=== PATIENT | female | born 1965 ===

== ENCOUNTER 2017-05-14 11:27 | Emergency (ER) | payer SELFPAY ==
[2017-05-14 11:27] VITALS: BMI 24.4
[2017-05-14 11:59] VITALS: BP 130/71; PULSE 91; RESP 20; TEMP 97.2; O2SAT 99
[2017-05-14] MEDS: Sodium Chloride 0.9% 1,000 ML IV STA (13:19)
[2017-05-14 13:32] LABS: BASO # 0.1 K/uL (0.0-0.2); BASO % 0.6 % (0.0-2.0); HEMATOCRIT 40.2 % (34.0-47.0); LYMPH % 7.5 % (20.0-40.0); MEAN CELL VOLUME 94.8 fl (81.0-99.0); MEAN CORPUSCULAR HGB CONC 33.8 g/dL (33.0-37.0); MEAN PLATELET VOLUME 7.5 fl (7.2-11.7); MONO # 0.4 K/uL (0.0-0.8); NEUT # 11.8 K/uL (1.8-7.0); NEUT % 88.9 % (50.0-75.0); PLATELET COUNT 293 K/uL (130-400); RED CELL DISTRIBUTION WIDTH 12.6 % (11.5-14.5)
[2017-05-14 13:35] LABS: WHITE BLOOD COUNT 13.3 K/uL (4.8-10.8)
--- NOTE | 2017-05-14 13:45 | ED PDOC ---
Hyperglycemia/Hypoglycemia Time Seen by Provider: 05/14/17 12:56 Chief Complaint (Nursing): High Blood Sugar : The patient does not have any of the infectious symptoms listed except for those marked. Additional Complaint(s): 37yo F in ER for eval of elevated BS-sent by clinic BS was 380. pt admits she has increased dry mouth . Pt without nausea vomiting abd pain or headache, urinary freq or urgency or hematuira. taking metformin BID took the AM dose. not taking insulin. Past Medical History Vital Signs: Last Vital Signs Temp 97.2 F L 05/14/17 11:56 Pulse 91 H 05/14/17 11:56 Resp 20 05/14/17 11:56 BP 130/71 05/14/17 11:56 Pulse Ox 99 05/14/17 11:56 - Medical History PMH: Diabetes Denies: Chronic Kidney Disease - Family History Family History: States: No Known Family Hx - Home Medications Home Medications: Ambulatory Orders Medication Instructions Recorded GlipiZIDE [Glucotrol] 10 mg PO BIDAC #60 tab 05/01/17 MetFORMIN [glucoPHAGE] 500 mg PO BIDWM #60 tab 05/01/17 - Allergies Allergies/Adverse Reactions: Allergies Allergy/AdvReac Type Severity Reaction Status Date / Time No Known Allergies Allergy Verified 04/29/17 11:34 - Laboratory Results Result Diagrams: 05/14/17 13:19 05/14/17 13:28 - ECG O2 Sat by Pulse Oximetry: 99 Medical Decision Making Medical Decision Making: BS improved in ED pt well appearing and feels well. d/c home with f.u with clinic Disposition - Clinical Impression Clinical Impression: Hyperglycemia - Patient ED Disposition Is Patient to be Admitted: No Counseled Patient/Family Regarding: Need For Followup - Disposition Disposition: Routine/Home Disposition Time: 15:55 Condition: STABLE Instructions: How to Check Your Blood Sugar (ED), Diabetes Mellitus Type 2 in Adults (ED) Print Language: BRAZILIAN
[2017-05-14 13:52] LABS: ALB/GLOB RATIO 0.9 (1.0-2.1); ALKALINE PHOSPHATASE 150 U/L (38-126); ALT/SGPT 19 U/L (9-52); AST/SGOT 19 U/L (14-36); BILIRUBIN,TOTAL 0.6 mg/dl (0.2-1.3); BLOOD UREA NITROGEN 11 mg/dl (7-17); CALCIUM 9.2 mg/dL (8.4-10.2); CARBON DIOXIDE 30 mmol/L (22-30); CHLORIDE 97 mmol/L (98-107); GFR AFRICAN-AMERICAN > 60; GLUCOSE,RANDOM 327 mg/dL (65-105); POTASSIUM 4.5 MMOL/L (3.6-5.0); SODIUM 137 mmol/l (132-148); TOTAL PROTEIN 7.6 G/DL (6.3-8.2)
[2017-05-14 14:37] LABS: NEUTROPHIL 92 % (42-75); TOTAL CELLS COUNTED 100
[2017-05-14 14:38] LABS: RBC URINE 8 /hpf (0-3); URINE BACTERIA RARE (<OCC); URINE BILIRUBIN NEGATIVE (NEGATIVE); URINE BLOOD MODERATE (NEGATIVE); URINE COLOR STRAW (YELLOW); URINE GLUCOSE (UA) >=500 mg/dL (Normal); URINE KETONE 20 mg/dL (NEGATIVE); URINE LEUKOCYTE ESTERASE LARGE Leu/uL (Negative); URINE PROTEIN NEGATIVE (NEGATIVE); URINE UROBILINOGEN 0.2-1.0 mg/dL (0.2-1.0); WBC URINE 28 /hpf (0-5)
== END 2017-05-14 16:26 | disposition home or self-care (01) ==
LOC: H.ER 11:27
DX: E11.65 Type 2 diabetes mellitus with hyperglycemia (principal); Z79.84 Long term (current) use of oral hypoglycemic drugs
CPT/HCPCS: 80053; 81003; 82948; 85025; 99283; J7040

== ENCOUNTER 2017-05-21 09:38 | Inpatient (IN) | payer MEDICAID, SELFPAY ==
[2017-05-21 09:53] VITALS: BMI 19.4
[2017-05-21] MEDS ORDERED: Sodium Chloride 0.9% 1,000 ML IV STA (10:42)
[2017-05-21 10:56] LABS: BASO # 0.1 K/uL (0.0-0.2); BASO % 0.3 % (0.0-2.0); HEMATOCRIT 38.5 % (34.0-47.0); LYMPH # 0.7 K/uL (1.0-4.3); LYMPH % 3.3 % (20.0-40.0); MEAN CELL VOLUME 95.1 fl (81.0-99.0); MEAN CORPUSCULAR HGB CONC 33.6 g/dL (33.0-37.0); MEAN PLATELET VOLUME 9.2 fl (7.2-11.7); MONO # 0.7 K/uL (0.0-0.8); MONO % 3.3 % (0.0-10.0); NEUT # 18.8 K/uL (1.8-7.0); NEUT % 93.1 % (50.0-75.0); NRBC % 0.1 % (0.0-0.0); PLATELET COUNT 360 K/uL (130-400); RED CELL DISTRIBUTION WIDTH 12.8 % (11.5-14.5); WHITE BLOOD COUNT 20.2 K/uL (4.8-10.8)
[2017-05-21 10:56] LABS: VENOUS BLOOD GAS BASE EXCESS 0.5 mmol/L (0.0-2.0); VENOUS BLOOD GAS PCO2 52 mmHg (40-60); VENOUS BLOOD PH 7.33 (7.32-7.43)
[2017-05-21 11:34] LABS: ALB/GLOB RATIO 0.9 (1.0-2.1); ALKALINE PHOSPHATASE 168 U/L (38-126); ALT/SGPT 25 U/L (9-52); AST/SGOT 12 U/L (14-36); BILIRUBIN,TOTAL 0.5 mg/dl (0.2-1.3); BLOOD UREA NITROGEN 19 mg/dl (7-17); CALCIUM 9.1 mg/dL (8.4-10.2); CARBON DIOXIDE 24 mmol/L (22-30); CHLORIDE 102 mmol/L (98-107); GFR AFRICAN-AMERICAN > 60; GLUCOSE,RANDOM 424 mg/dL (65-105); POTASSIUM 4.4 MMOL/L (3.6-5.0); SODIUM 140 mmol/l (132-148); TOTAL PROTEIN 6.9 G/DL (6.3-8.2)
--- NOTE | 2017-05-21 11:36 | RAD ---
HISTORY: infectious work up COMPARISON: Obstructive series performed 04/29/17 TECHNIQUE: Chest PA and lateral FINDINGS: Examination limited by habitus. LUNGS: No focal consolidation. Please note that chest x-ray has limited sensitivity for the detection of pulmonary masses. PLEURA: No significant pleural effusion identified. No definite pneumothorax . CARDIOVASCULAR: Heart size appears within normal limits. OSSEOUS STRUCTURES: Mild degenerative changes. VISUALIZED UPPER ABDOMEN: Unremarkable. OTHER FINDINGS: None. IMPRESSION: No focal consolidation, significant pleural effusion, or definite pneumothorax identified.
[2017-05-21 12:06] LABS: NEUTROPHIL 89 % (42-75); TOTAL CELLS COUNTED 100
[2017-05-21 12:07] LABS: GIANT PLATELETS PRESENT
[2017-05-21] MEDS ORDERED: Insulin Regular 100 units/ml IV STA (12:14)
--- NOTE | 2017-05-21 12:51 | ED PDOC ---
Hyperglycemia/Hypoglycemia Time Seen by Provider: 05/21/17 10:04 Chief Complaint (Nursing): High Blood Sugar Chief Complaint (Provider): High blood sugar History Per: Patient History/Exam Limitations: no limitations Onset/Duration Of Symptoms: Days (x1) Current Symptoms Are (Timing): Still Present Associated Infectious Symptoms: denies: Cough, Dysuria, Nausea, Vomiting, Diarrhea : The patient does not have any of the infectious symptoms listed except for those marked. Treatment Prior To Provider Evaluation: Accucheck Additional Complaint(s): Maria Isabel Mcfarland is a 52 year old female, with a past medical history of diabetes, who presents to the emergency department for an elevated blood sugar associated with fatigue onset just today. Patient generally feels dry and thirsty. She is also complaining of nausea when she eats onset for x1 month. Patient believes this has been happening on and off for months with the sugar usually on the high end. Patient visited the clinic today where she received an accucheck and had her sugar on the 400s. She is not taking any insulin. She is currently taking metformin and glipizide. She denies any fever, vomiting, cough , chest pain, headache, shortness of breath, urinary symptoms, diarrhea or abdominal pain. PMD: Philippe Pierre Past Medical History Reviewed: Historical Data, Nursing Documentation, Vital Signs Vital Signs: Last Vital Signs Temp 97 F L 05/21/17 09:50 Pulse 96 H 05/21/17 09:50 Resp BP 141/45 L 05/21/17 09:50 Pulse Ox 99 05/21/17 09:50 - Medical History PMH: Diabetes Denies: Chronic Kidney Disease - Family History Family History: States: Unknown Family Hx - Social History Current smoker - smoking cessation education provided: No Alcohol: None Drugs: Denies - Home Medications Home Medications: Ambulatory Orders Medication Instructions Recorded Atorvastatin [Lipitor] 20 mg PO DAILY #30 tab 05/27/17 Ciprofloxacin HCl [Cipro] 500 mg PO BID 10 Days tablet 05/27/17 GlipiZIDE [Glucotrol] 10 mg PO ACD #30 tab 05/27/17 GlipiZIDE [Glucotrol] 20 mg PO ACB #30 tab 05/27/17 Lisinopril [Zestril] 5 mg PO DAILY #30 tab 05/27/17 MetFORMIN [glucoPHAGE] 1,000 mg PO QAM #30 tab 05/27/17 Sulfamethoxazole/Trimethoprim 1 tab PO BID 10 Days tab 05/27/17 [Bactrim DS 800 mg-160 mg] metFORMIN [glucOPHAGE] 500 mg PO QPM #30 tab 05/27/17 - Allergies Allergies/Adverse Reactions: Allergies Allergy/AdvReac Type Severity Reaction Status Date / Time No Known Allergies Allergy Verified 05/21/17 10:04 Review of Systems ROS Statement: Except As Marked, All Systems Reviewed And Found Negative Constitutional: Positive for: Other (fatigue, dry and thirsty). Negative for: Fever Cardiovascular: Negative for: Chest Pain Respiratory: Negative for: Cough, Shortness of Breath Gastrointestinal: Negative for: Nausea, Vomiting, Abdominal Pain, Diarrhea Genitourinary Female: Negative for: Dysuria Neurological: Negative for: Headache Physical Exam - Reviewed Nursing Documentation Reviewed: Yes Vital Signs Reviewed: Yes - Physical Exam Appears: Positive for: Well (comfortable), Non-toxic, No Acute Distress Head Exam: Positive for: ATRAUMATIC, NORMAL INSPECTION, NORMOCEPHALIC Skin: Positive for: Normal Color, Warm, Dry Eye Exam: Positive for: EOMI, Normal appearance, PERRL ENT: Positive for: Normal ENT Inspection Neck: Positive for: Normal, Painless ROM, Supple Cardiovascular/Chest: Positive for: Regular Rate, Rhythm. Negative for: Murmur Respiratory: Positive for: Normal Breath Sounds. Negative for: Respiratory Distress Gastrointestinal/Abdominal: Positive for: Normal Exam, Bowel Sounds, Soft. Negative for: Tenderness, Guarding, Rebound Back: Positive for: Normal Inspection. Negative for: L CVA Tenderness, R CVA Tenderness Extremity: Positive for: Normal ROM. Negative for: Deformity, Swelling Neurologic/Psych: Positive for: Alert, Oriented. Negative for: Motor/Sensory Deficits - Laboratory Results Result Diagrams: 05/26/17 06:30 05/26/17 06:30 - ECG O2 Sat by Pulse Oximetry: 99 (RA) Pulse Ox Interpretation: Normal Medical Decision Making Medical Decision Making: Initial Impression: hyperglycemia diabetic. Rule out: DKA, infection Initial Plan: --VBG --Comp Metabolic Panel --Urine Dipstick --CBC w/ differential --Chest two views (PA/LAT) [RAD] --HumunLIN R --NS IV 1,000 ml @ 1,000 mls/hr --Influenza A B --Urinalysis --reevaluation 1134 Chest X-Ray FINDINGS: Examination limited by habitus. LUNGS: No focal consolidation. Please note that chest x-ray has limited sensitivity for the detection of pulmonary masses. PLEURA: No significant pleural effusion identified. No definite pneumothorax . CARDIOVASCULAR: Heart size appears within normal limits. OSSEOUS STRUCTURES: Mild degenerative changes. VISUALIZED UPPER ABDOMEN: Unremarkable. OTHER FINDINGS: None. IMPRESSION: No focal consolidation, significant pleural effusion, or definite pneumothorax identifie Patient qualified for inpatient admission for UTI associated with elevated WBC and underlying diabetes as risk factor as well as admission for diabetic hyperglycemia and uncontrolled diabetes. Scribe Attestation: Documented by Michael Villaseñor, acting as a scribe for Kiana Espinoza MD Provider Scribe Attestation: All medical record entries made by the Scribe were at my direction and personally dictated by me. I have reviewed the chart and agree that the record accurately reflects my personal performance of the history, physical exam, medical decision making, and the department course for this patient. I have also personally directed, reviewed, and agree with the discharge instructions and disposition. Disposition - Clinical Impression Clinical Impression: Urinary tract infectious disease, Hyperglycemia, Diabetic complication - Patient ED Disposition Is Patient to be Admitted: Yes Doctor Will See Patient In The: ED Counseled Patient/Family Regarding: Studies Performed, Diagnosis - Disposition Disposition Time: 15:45 Condition: FAIR - Pt Status Changed To: Hospital Disposition Of: Inpatient - Admit Certification Admit to Inpatient:: After my assessment, the patient will require hospitalization for at least two midnights. This is because of the severity of symptoms shown, intensity of services needed, and/or the medical risk in this patient being treated as an outpatient. - POA Present On Arrival: Poor Glycemic Control
[2017-05-21 13:08] LABS: RBC URINE 6 /hpf (0-3); URINE BACTERIA RARE (<OCC); URINE BILIRUBIN NEGATIVE (NEGATIVE); URINE BLOOD SMALL (NEGATIVE); URINE COLOR STRAW (YELLOW); URINE GLUCOSE (UA) >=500 mg/dL (Normal); URINE KETONE 20 mg/dL (NEGATIVE); URINE LEUKOCYTE ESTERASE MOD Leu/uL (Negative); URINE PROTEIN NEGATIVE (NEGATIVE); URINE UROBILINOGEN 0.2-1.0 mg/dL (0.2-1.0); WBC URINE 18 /hpf (0-5)
[2017-05-21] MEDS ORDERED: cefTRIAXone IV 1 gm in Dextros 50 ML IVPB STA (13:18)
[2017-05-21] MEDS ORDERED: cefTRIAXone IV 1 gm in Dextros 50 ML IVPB ONE (13:34)
[2017-05-21] MEDS ORDERED: Dextrose 50% SYRINGE Inj (50 ml) IV PRN (16:29)
[2017-05-21] MEDS ORDERED: Glucagon Recombinant 1 mg Inj IM PRN (16:29)
--- NOTE | 2017-05-21 16:58 | CP.PCM.HP ---
History of Present Illness - History of Present Illness History of Present Illness: PMD Dr French([facility]) History taken from patient and Full code. No advance directives. Patient designates her Toñito Ellis( [phone]) as her next of kin. 52 y/o F with PMHx of recently diagnosed DM. presented to the ED, after being transferred from [facility] because of persistent hyperglycemia with ketones in the urine. Patient was started PO hypoglycemics 1 month ago and has been compliant. Patient also c/o Wt loss of about 40 lbs since last year, polydipsy, dry mouth, anorexia, bloating and vaginal itching. Patient has not seen a doctor in years until recently(1 month ago) that she presented to ED c/o abd pain, nausea. She then followed at the clinic and she was started on Metformin 500 mg BID and Glipizide 10 mg daily which patient has been compliant with. She denies dysuria , CP, SOB, dizziness, blurry vision, diarrhea, polyuria. Patient c/o whitish, non foul smelling vaginal discharge, itchy associated with some redness. No difficulty or pain swallowing. ED course: CBC, CMP, EKG, CXR, VBG, UA, Influenza, UCx, BCx. Remarkable results: BS 424, UA suggest UTI, WBC 20(See reports) IV fluids Rocephin x1 Regular Insulin 5 units stat PMHx: Denies SxHx: Denies SHx: Denies x3. Lives with . FHx: Mother: HTN Siblings: DM LMP: 10 y/a Present on Admission - Present on Admission Any Indicators Present on Admission: Yes History of Uncontrolled Diabetes: Yes Review of Systems - Review of Systems All systems: reviewed and no additional remarkable complaints except (those described in hPI) Past Patient History - Infectious Disease Hx of Infectious Diseases: None - Tetanus Immunizations Tetanus Immunization: Unknown - Past Medical History & Family History Past Medical History?: No - Past Social History Alcohol: None Drugs: Denies - CARDIAC Hx Cardiac Disorders: No - PULMONARY Hx Respiratory Disorders: No - NEUROLOGICAL Hx Neurological Disorder: No - HEENT Hx HEENT Problems: No - RENAL Hx Chronic Kidney Disease: No - ENDOCRINE/METABOLIC Hx Endocrine Disorders: No Hx Diabetes Mellitus Type 2: Yes - HEMATOLOGICAL/ONCOLOGICAL Hx Blood Disorders: No - INTEGUMENTARY Hx Dermatological Problems: No - MUSCULOSKELETAL/RHEUMATOLOGICAL Hx Musculoskeletal Disorders: No - GASTROINTESTINAL Hx Gastrointestinal Disorders: No - GENITOURINARY/GYNECOLOGICAL Hx Genitourinary Disorders: No - PSYCHIATRIC Hx Psychophysiologic Disorder: No Hx Substance Use: No - SURGICAL HISTORY Hx Surgeries: No - ANESTHESIA Hx Anesthesia: No Meds Allergies/Adverse Reactions: Allergies Allergy/AdvReac Type Severity Reaction Status Date / Time No Known Allergies Allergy Verified 05/21/17 10:04 Physical Exam - Constitutional Appears: Non-toxic, No Acute Distress - Eye Exam Eye Exam: EOMI, PERRL - ENT Exam ENT Exam: Mucous Membranes Dry Additional comments: Oral thrush. - Neck Exam Neck exam: Positive for: Full Rom - Respiratory Exam Respiratory Exam: Clear to Auscultation Bilateral, NORMAL BREATHING PATTERN. absent: Rales, Wheezes, Respiratory Distress - Cardiovascular Exam Cardiovascular Exam: REGULAR RHYTHM, +S1, +S2. absent: Gallop - GI/Abdominal Exam GI & Abdominal Exam: Normal Bowel Sounds, Soft. absent: Guarding, Rigid, Tenderness - Extremities Exam Extremities exam: Positive for: normal capillary refill, pedal pulses present. Negative for: calf tenderness, joint swelling, tenderness - Back Exam Back exam: absent: CVA tenderness (L) - Neurological Exam Neurological exam: Alert, CN II-XII Intact, Oriented x3 - Psychiatric Exam Psychiatric exam: Normal Affect, Normal Mood - Skin Skin Exam: Normal Color, Warm Results - Vital Signs Recent Vital Signs: Last Vital Signs Temp 97 F L 05/21/17 09:50 Pulse 96 H 05/21/17 09:50 Resp BP 141/45 L 05/21/17 09:50 Pulse Ox 99 05/21/17 13:34 - Labs Result Diagrams: 05/21/17 10:46 05/21/17 10:46 Labs: Laboratory Results - last 24 hr 05/21/17 05/21/17 05/21/17 10:42 10:46 10:46 WBC 20.2 H D RBC 4.05 Hgb 12.9 Hct 38.5 MCV 95.1 MCH 32.0 H MCHC 33.6 RDW 12.8 Plt Count 360 MPV 9.2 Neut % (Auto) 93.1 H Lymph % (Auto) 3.3 L Dixon % (Auto) 3.3 Eos % (Auto) 0.0 Baso % (Auto) 0.3 Neut # 18.8 H Lymph # 0.7 L Dixon # 0.7 Eos # 0.0 Baso # 0.1 Neutrophils % (Manual) 89 H Lymphocytes % (Manual) 8 L Monocytes % (Manual) 3 Toxic Granulation Present Platelet Estimate Normal Giant Platelets Present Hypochromasia (manual) Slight Tear Drop Cells Slight pO2 21 L VBG pH 7.33 VBG pCO2 52 VBG HCO3 23.5 VBG O2 Sat (Calc) 37.2 L VBG Base Excess 0.5 Blood Gas Comments 14 Crit Value Called To Sera rosales r.n. Crit Value Read Back Y Blood Gas Notified Time 1056 Sodium 140 Potassium 4.4 Chloride 102 Carbon Dioxide 24 Anion Gap 18 BUN 19 H Creatinine 0.6 L Est GFR ( Amer) > 60 Est GFR (Non-Af Amer) > 60 Random Glucose 424 H* D Calcium 9.1 Total Bilirubin 0.5 AST 12 L D ALT 25 Alkaline Phosphatase 168 H Total Protein 6.9 Albumin 3.3 L Globulin 3.6 Albumin/Globulin Ratio 0.9 L Urine Color Urine Clarity Urine pH Ur Specific [place] Urine Protein Urine Glucose (UA) Urine Ketones Urine Blood Urine Nitrate Urine Bilirubin Urine Urobilinogen Ur Leukocyte Esterase Urine RBC (Auto) Urine Microscopic WBC Ur Squamous Epith Cells Urine Bacteria Influenza Typ A,B (EIA) 05/21/17 05/21/17 11:12 12:30 WBC RBC Hgb Hct MCV MCH MCHC RDW Plt Count MPV Neut % (Auto) Lymph % (Auto) Dixon % (Auto) Eos % (Auto) Baso % (Auto) Neut # Lymph # Dixon # Eos # Baso # Neutrophils % (Manual) Lymphocytes % (Manual) Monocytes % (Manual) Toxic Granulation Platelet Estimate Giant Platelets Hypochromasia (manual) Tear Drop Cells pO2 VBG pH VBG pCO2 VBG HCO3 VBG O2 Sat (Calc) VBG Base Excess Blood Gas Comments Crit Value Called To Crit Value Read Back Blood Gas Notified Time Sodium Potassium Chloride Carbon Dioxide Anion Gap BUN Creatinine Est GFR ( Amer) Est GFR (Non-Af Amer) Random Glucose Calcium Total Bilirubin AST ALT Alkaline Phosphatase Total Protein Albumin Globulin Albumin/Globulin Ratio Urine Color Straw Urine Clarity Slighty-cloudy Urine pH 6.0 Ur Specific [place] 1.016 Urine Protein Negative Urine Glucose (UA) >=500 Urine Ketones 20 Urine Blood Small Urine Nitrate Negative Urine Bilirubin Negative Urine Urobilinogen 0.2-1.0 Ur Leukocyte Esterase Mod Urine RBC (Auto) 6 H Urine Microscopic WBC 18 H Ur Squamous Epith Cells 1 Urine Bacteria Rare Influenza Typ A,B (EIA) Negative for flu a/b Assessment & Plan - Assessment and Plan (Free Text) Assessment: 52 y/o F with PMHx of recently diagnosed DM is admitted for hyperglycemia Uncontrolled DM type 2 with hyperglycemia without DKA -BS 424 -Stable, failure of outpatient treatment -On Metformin and GLipizide for the past month(compliant) -C/O Dry mouth, Wt loss, polydipsy, anorexia -Ketones in the urine(20) -S/p 5 units regular insulin and 1L IV NS at ED -Start Levemir 10 units SQ HS -Start Atorvastatin 20 mg daily -SSRI/accuchecks with meals -HGbA1c 1 month ago 10.9 -F/U reepat BMP AM -Urine microalbumin ordered -Diabetic diet. UTI, suspected acute -WBC 20 -UA: high LE, WBC, RBC, bacteria -No dysuria -S/p Rocephin x1 ED -Start Cipro 500 mg BID PO -F/U UCx and repeat CBC AM Oral and Vaginal candidiasis -Start Fluconazole 100 mg daily for 7 days -Likely complication of uncontrolled DM -F/U HIV test Prophylaxis Lovenox 40mg daily
[2017-05-21] MEDS: Insulin Regular 100 units/ml SC SCH ×2 (17:22→22:35)
[2017-05-21] MEDS: Insulin Detemir 100 Units/ml Inj SC SCH (21:09)
[2017-05-22 07:05] LABS: BASO % 0.1 % (0.0-2.0); LYMPH # 1.2 K/uL (1.0-4.3); LYMPH % 6.5 % (20.0-40.0); MEAN CELL VOLUME 93.4 fl (81.0-99.0); MEAN CORPUSCULAR HEMOGLOBIN 31.5 pg (27.0-31.0); MEAN CORPUSCULAR HGB CONC 33.7 g/dL (33.0-37.0); MEAN PLATELET VOLUME 8.4 fl (7.2-11.7); MONO % 5.5 % (0.0-10.0); NEUT # 15.7 K/uL (1.8-7.0); NEUT % 87.9 % (50.0-75.0); RED CELL DISTRIBUTION WIDTH 13.1 % (11.5-14.5); WHITE BLOOD COUNT 17.8 K/uL (4.8-10.8)
[2017-05-22 07:27] LABS: BLOOD UREA NITROGEN 11 mg/dl (7-17); CALCIUM 8.9 mg/dL (8.4-10.2); CARBON DIOXIDE 32 mmol/L (22-30); CHLORIDE 106 mmol/L (98-107); GFR AFRICAN-AMERICAN > 60; GLUCOSE,RANDOM 129 mg/dL (65-105); MAGNESIUM 1.9 MG/DL (1.6-2.3); POTASSIUM 3.6 MMOL/L (3.6-5.0); SODIUM 145 mmol/l (132-148)
[2017-05-22] MEDS: Insulin Regular 100 units/ml SC SCH ×4 (07:30→21:42)
[2017-05-22] MEDS ORDERED: Potassium Chloride 20 mEq ER Tab PO ONE (08:45)
[2017-05-22] MEDS: Enoxaparin 40 mg Syringe SC SCH (09:58)
--- NOTE | 2017-05-22 10:40 | CP.PCM.PN ---
Subjective - Date & Time of Evaluation Date of Evaluation: 05/22/17 Time of Evaluation: 07:40 - Subjective Subjective: 52 y/o F seen at bedside, patient had 1 vomiting episode last night after dinner NBNB. C/O anorexia and feeling mildly nauseated this morning. Denies dizziness, vision changes, dysuria, CP, SOB, palpitations. No events overnight. Objective - Vital Signs/Intake and Output Vital Signs (last 24 hours): Temp Pulse Resp BP Pulse Ox 97.9 F 105 H 20 119/73 95 05/22/17 09:07 05/22/17 09:07 05/22/17 09:07 05/22/17 09:07 05/22/17 09:07 - Medications Medications: Current Medications Atorvastatin Calcium (Lipitor) 20 mg PO DAILY [facility] Last Admin: 05/22/17 09:57 Dose: 20 mg Ciprofloxacin (Cipro) 500 mg PO Q12 [facility] PRN Reason: Protocol Last Admin: 05/22/17 09:55 Dose: 500 mg Dextrose (Dextrose 50% Inj) 0 ml IV STAT PRN; Protocol PRN Reason: Hypoglycemia Protocol Dextrose (Glutose 15) 0 gm PO ONCE PRN; Protocol PRN Reason: Hypoglycemia Protocol Enoxaparin Sodium (Lovenox) 40 mg SC DAILY [facility] PRN Reason: Protocol Last Admin: 05/22/17 09:58 Dose: 40 mg Glucagon (Glucagen Diagnostic Kit) 0 mg IM STAT PRN; Protocol PRN Reason: Hypoglycemia Protocol Sodium Chloride (Sodium Chloride 0.9%) 1,000 mls @ 125 mls/hr IV .Q8H [facility] Stop: 05/23/17 10:28 Fluconazole (Diflucan Iv 200 Mg/100 Ml Ns) 100 mls @ 100 mls/hr IVPB DAILY [facility] Insulin Detemir (Levemir) 10 units SC HS [facility] Last Admin: 05/21/17 21:09 Dose: 10 u Insulin Human Regular (Humulin R) 0 units SC ACHS [facility] PRN Reason: Protocol Last Admin: 05/22/17 07:30 Dose: Not Given Metformin HCl (Glucophage) 500 mg PO BID [facility] Last Admin: 05/22/17 09:56 Dose: 500 mg - Labs Labs: 05/22/17 05:15 05/22/17 05:15 - Constitutional Appears: Non-toxic, No Acute Distress - Eye Exam Eye Exam: EOMI, PERRL - ENT Exam ENT Exam: Mucous Membranes Dry (mild) Additional comments: Oral thrush - Respiratory Exam Respiratory Exam: Clear to Ausculation Bilateral, NORMAL BREATHING PATTERN. absent: Rales, Wheezes - Cardiovascular Exam Cardiovascular Exam: Tachycardia (mild), REGULAR RHYTHM, +S1, +S2. absent: Gallop, Murmur - GI/Abdominal Exam GI & Abdominal Exam: Soft, Normal Bowel Sounds. absent: Distended, Guarding, Tenderness - Extremities Exam Extremities Exam: Normal Capillary Refill. absent: Calf Tenderness, Pedal Edema , Tenderness - Neurological Exam Neurological Exam: Alert, Awake, Oriented x3 - Psychiatric Exam Psychiatric exam: Normal Affect, Normal Mood - Skin Skin Exam: Normal Color, Warm Assessment and Plan - Assessment and Plan (Free Text) Assessment: 52 y/o F with PMHx of recently diagnosed DM is admitted for hyperglycemia Uncontrolled DM type 2 with hyperglycemia without DKA -Improved -C/W Levemir 10 units SQ HS -C/W Atorvastatin 20 mg daily -SSRI/accuchecks with meals -HGbA1c 1 month ago 10.9 -F/W Urine microalbumin -Diabetic diet. -special educator and Stemmer Machine consulted -Zofran IV once given for nausea UTI, suspected acute -WBC 20-->17 -UA: high LE, WBC, RBC, bacteria -C/W Cipro 500 mg BID PO -F/U UCx Oral and Vaginal candidiasis -Will increased dose of Fluconazole to 200 mg IV daily and will send for fungal Cx on blood and 1.3 betaglucan test to rule out and empirically treat possible fungemia by Candidiasis since patient has a white count and Oral/Vaginal candidiasis -Likely complication of uncontrolled DM -HIV test: neg Prophylaxis Lovenox 40mg daily
[2017-05-22] MEDS: Sodium Chloride 0.9% 1,000 ML IV SCH (12:30)
[2017-05-22] MEDS: Fluconazole IV 200mg/100 ml NS 100 ML IVPB SCH (13:47)
[2017-05-22] MEDS: Insulin Detemir 100 Units/ml Inj SC SCH (21:01)
[2017-05-23] MEDS: Sodium Chloride 0.9% 1,000 ML IV SCH (02:42)
[2017-05-23 06:36] LABS: BASO % 0.1 % (0.0-2.0); EOS % 0.1 % (0.0-4.0); HEMATOCRIT 32.2 % (34.0-47.0); LYMPH # 1.3 K/uL (1.0-4.3); LYMPH % 10.4 % (20.0-40.0); MEAN CELL VOLUME 92.8 fl (81.0-99.0); MEAN CORPUSCULAR HEMOGLOBIN 31.6 pg (27.0-31.0); MEAN CORPUSCULAR HGB CONC 34.1 g/dL (33.0-37.0); MEAN PLATELET VOLUME 8.1 fl (7.2-11.7); MONO # 0.7 K/uL (0.0-0.8); MONO % 5.4 % (0.0-10.0); NEUT # 10.6 K/uL (1.8-7.0); RED CELL DISTRIBUTION WIDTH 12.9 % (11.5-14.5); WHITE BLOOD COUNT 12.7 K/uL (4.8-10.8)
[2017-05-23 07:03] LABS: BLOOD UREA NITROGEN 12 mg/dl (7-17); CALCIUM 8.5 mg/dL (8.4-10.2); CARBON DIOXIDE 32 mmol/L (22-30); CHLORIDE 106 mmol/L (98-107); GFR AFRICAN-AMERICAN > 60; GLUCOSE,RANDOM 176 mg/dL (65-105); POTASSIUM 3.9 MMOL/L (3.6-5.0); SODIUM 143 mmol/l (132-148)
[2017-05-23] MEDS: Insulin Regular 100 units/ml SC SCH ×4 (08:00→22:17)
[2017-05-23] MEDS: Fluconazole IV 200mg/100 ml NS 100 ML IVPB SCH (08:41)
[2017-05-23] MEDS: Enoxaparin 40 mg Syringe SC SCH (08:45)
--- NOTE | 2017-05-23 10:57 | CP.PCM.PN ---
Subjective - Date & Time of Evaluation Date of Evaluation: 05/23/17 Time of Evaluation: 07:35 - Subjective Subjective: 52 y/o F seen at bedside in not acute distress. Patient "feels better". Still c/ o slight dry mouth. Denies dysuria, dizziness, vomiting, palpitations, CP. Bcx and Ucx results noticed. Tolerating PO Objective - Vital Signs/Intake and Output Vital Signs (last 24 hours): Temp Pulse Resp BP Pulse Ox 97.6 F 78 20 132/75 95 05/23/17 07:53 05/23/17 07:53 05/23/17 07:53 05/23/17 07:53 05/23/17 07:53 - Medications Medications: Current Medications Atorvastatin Calcium (Lipitor) 20 mg PO DAILY [facility] Last Admin: 05/23/17 08:45 Dose: 20 mg Dextrose (Dextrose 50% Inj) 0 ml IV STAT PRN; Protocol PRN Reason: Hypoglycemia Protocol Dextrose (Glutose 15) 0 gm PO ONCE PRN; Protocol PRN Reason: Hypoglycemia Protocol Enoxaparin Sodium (Lovenox) 40 mg SC DAILY [facility] PRN Reason: Protocol Last Admin: 05/23/17 08:45 Dose: 40 mg Glucagon (Glucagen Diagnostic Kit) 0 mg IM STAT PRN; Protocol PRN Reason: Hypoglycemia Protocol Fluconazole (Diflucan Iv 200 Mg/100 Ml Ns) 100 mls @ 100 mls/hr IVPB DAILY [facility] Last Admin: 05/23/17 08:41 Dose: 100 mls/hr Ciprofloxacin (Cipro 400mg/200ml Dsw) 400 mg in 200 mls @ 200 mls/hr IVPB Q12 [facility] PRN Reason: Protocol Vancomycin HCl 1 gm/ Sodium (Chloride) 250 mls @ 166.667 mls/hr IVPB Q12H [facility] PRN Reason: Protocol Insulin Detemir (Levemir) 10 units SC HS [facility] Last Admin: 05/22/17 21:01 Dose: 10 u Insulin Human Regular (Humulin R) 0 units SC ACHS [facility] PRN Reason: Protocol Last Admin: 05/23/17 08:00 Dose: 2 units Metformin HCl (Glucophage) 500 mg PO BID [facility] Last Admin: 05/23/17 08:41 Dose: 500 mg - Labs Labs: 05/23/17 05:40 05/23/17 05:40 - Constitutional Appears: Non-toxic - Eye Exam Eye Exam: EOMI, PERRL - ENT Exam ENT Exam: Mucous Membranes Dry (slightly dry) - Respiratory Exam Respiratory Exam: Clear to Ausculation Bilateral, NORMAL BREATHING PATTERN. absent: Decreased Breath Sounds - Cardiovascular Exam Cardiovascular Exam: REGULAR RHYTHM, +S1, +S2. absent: Gallop - GI/Abdominal Exam GI & Abdominal Exam: Soft, Normal Bowel Sounds. absent: Distended, Guarding, Tenderness, Rebound - Extremities Exam Extremities Exam: Normal Capillary Refill, Normal Inspection. absent: Calf Tenderness - Back Exam Back Exam: absent: CVA tenderness (L), CVA tenderness (R) - Neurological Exam Neurological Exam: Alert, Awake, CN II-XII Intact, Oriented x3 - Psychiatric Exam Psychiatric exam: absent: Anxious, Homicidal Ideation, Manic, Suicidal Ideation - Skin Skin Exam: Normal Color, Warm Assessment and Plan - Assessment and Plan (Free Text) Assessment: 52 y/o F with PMHx of recently diagnosed DM is admitted for hyperglycemia Bacteremia Gram neg rods -Likely present on admission -WBC improving -Bcx growing Gram neg rods -Ucx postive for E.Coli sensitive to cipro and GBS sensitive to Vanco -Switch Cipro to IV 400mg q12h -Start Vanco 1 g IV q12h. F/U Vanco through before 4th dose -Echo ordered Uncontrolled DM type 2 with hyperglycemia without DKA -Improved -C/W Levemir 10 units SQ HS -C/W Atorvastatin 20 mg daily -SSRI/accuchecks with meals -HGbA1c 1 month ago 10.9 -F/W Urine microalbumin -Diabetic diet. -ict educator and [employer]er consulted UTI positive for GBS and E.Coli acute -Ucx + for E.Coli sensitive to Cipro. GBS sensitive to Vanco. -WBC Improving -Cipro q12h 400 mg IV(Day 3) -Vanco 1g q12h IV(day 1) Oral and Vaginal candidiasis -C/W Fluconazole 200 mg IV daily(day 3) Prophylaxis Lovenox 40mg daily
[2017-05-23 18:39] LABS: FOLATE 6.3 ng/mL
[2017-05-23] MEDS: Ciprofloxacin 400mg/200ml D5W 400 MG/200 ML BAG IVPB SCH (22:10)
[2017-05-23] MEDS: Insulin Detemir 100 Units/ml Inj SC SCH (22:18)
[2017-05-24] MEDS: Insulin Regular 100 units/ml SC SCH ×4 (06:33→21:44)
[2017-05-24] MEDS ORDERED: Insulin Detemir 100 Units/ml Inj SC SCH (08:23)
--- NOTE | 2017-05-24 08:34 | CP.PCM.PN ---
Subjective - Date & Time of Evaluation Date of Evaluation: 05/24/17 Time of Evaluation: 08:34 - Subjective Subjective: 52 YO F w/ uncontolled DM2 denies any overnight events. Patients blood sugars have remained elevated. Denies any fever, chills, nausea, vomiting, abdominal pain, polyuria, polydipsia, or blurring of vision. PAtinets blood and urine culture show sensitivity to ciprofloxacin and vancomycin. Objective - Vital Signs/Intake and Output Vital Signs (last 24 hours): Temp Pulse Resp BP Pulse Ox 98.2 F 96 H 19 119/67 95 05/24/17 00:00 05/24/17 00:00 05/24/17 00:00 05/24/17 00:00 05/24/17 00:00 - Medications Medications: Current Medications Atorvastatin Calcium (Lipitor) 20 mg PO DAILY [facility] Last Admin: 05/23/17 08:45 Dose: 20 mg Dextrose (Dextrose 50% Inj) 0 ml IV STAT PRN; Protocol PRN Reason: Hypoglycemia Protocol Dextrose (Glutose 15) 0 gm PO ONCE PRN; Protocol PRN Reason: Hypoglycemia Protocol Enoxaparin Sodium (Lovenox) 40 mg SC DAILY [facility] PRN Reason: Protocol Last Admin: 05/23/17 08:45 Dose: 40 mg Glucagon (Glucagen Diagnostic Kit) 0 mg IM STAT PRN; Protocol PRN Reason: Hypoglycemia Protocol Fluconazole (Diflucan Iv 200 Mg/100 Ml Ns) 100 mls @ 100 mls/hr IVPB DAILY [facility] Last Admin: 05/23/17 08:41 Dose: 100 mls/hr Ciprofloxacin (Cipro 400mg/200ml Dsw) 400 mg in 200 mls @ 200 mls/hr IVPB Q12 [facility] PRN Reason: Protocol Last Admin: 05/23/17 22:10 Dose: 200 mls/hr Vancomycin HCl 1 gm/ Sodium (Chloride) 250 mls @ 166.667 mls/hr IVPB Q12H [facility] PRN Reason: Protocol Last Admin: 05/23/17 23:14 Dose: 166.667 mls/hr Insulin Detemir (Levemir) 12 units SC HS [facility] Insulin Human Regular (Humulin R) 0 units SC ACHS [facility] PRN Reason: Protocol Last Admin: 05/24/17 06:33 Dose: 3 units Metformin HCl (Glucophage) 500 mg PO BID [facility] Last Admin: 05/23/17 17:04 Dose: 500 mg - Labs Labs: 05/23/17 05:40 05/23/17 05:40 - Constitutional Appears: No Acute Distress - Head Exam Head Exam: NORMAL INSPECTION - Eye Exam Eye Exam: Normal appearance - ENT Exam ENT Exam: Mucous Membranes Moist - Neck Exam Neck Exam: Normal Inspection - Respiratory Exam Respiratory Exam: Clear to Ausculation Bilateral, NORMAL BREATHING PATTERN. absent: Rhonchi, Wheezes - Cardiovascular Exam Cardiovascular Exam: REGULAR RHYTHM, +S1, +S2 - GI/Abdominal Exam GI & Abdominal Exam: Soft, Normal Bowel Sounds. absent: Tenderness - Extremities Exam Extremities Exam: absent: Calf Tenderness - Back Exam Back Exam: NORMAL INSPECTION - Neurological Exam Neurological Exam: Alert, Awake, CN II-XII Intact, Oriented x3 Assessment and Plan - Assessment and Plan (Free Text) Assessment: 52 y/o F with PMHx of recently diagnosed DM is admitted for hyperglycemia Bacteremia Gram neg rods -Likely present on admission -WBC improving trended down to 12.7 -Bcx growing Gram neg rods -Ucx positive for E.Coli sensitive to cipro and GBS sensitive to Vanco -Cipro to IV 400mg q12h -C/W Vanco 1 g IV q12h -F/U with official Echo results - Consult ID Uncontrolled DM type 2 with hyperglycemia without DKA - uncontrolled -Start NPH insulin and D/C levimir, 10 units in AM and 4 units in pm -C/W Atorvastatin 20 mg daily -SSRI/accuchecks with meals -HGbA1c 1 month ago 10.9 -F/W Urine microalbumin -Diabetic diet. -lead radiologic technologist and Vp Respiratory consulted UTI positive for GBS and E.Coli acute -Ucx + for E.Coli sensitive to Cipro. GBS sensitive to Vanco. -WBC Improving -Cipro q12h 400 mg IV(Day 4) -- Vancomycin (Day 2) Oral and Vaginal candidiasis -C/W Fluconazole 200 mg PO daily(day 4) Prophylaxis Lovenox 40mg daily
[2017-05-24] MEDS: Ciprofloxacin 400mg/200ml D5W 400 MG/200 ML BAG IVPB SCH ×2 (09:29→21:41)
[2017-05-24] MEDS: Fluconazole IV 200mg/100 ml NS 100 ML IVPB SCH (09:33)
[2017-05-24] MEDS: Enoxaparin 40 mg Syringe SC SCH (09:34)
--- NOTE | 2017-05-24 11:40 | CARD ---
APPROVED REPORT EXAM: Two-dimensional and M-mode echocardiogram with Doppler and color Doppler. Other Information Quality : GoodRhythm : NSR INDICATION Infection:Subacute bacterial endocarditis 2D DIMENSIONS IVSd0.73 (0.7-1.1cm)LVDd3.48 (3.9-5.9cm) LVOT Diameter1.98 (1.8-2.4cm)PWd0.64 (0.7-1.1cm) IVSs1.08 (0.8-1.2cm)LVDs2.92 (2.5-4.0cm) FS (%) 15.9 %PWs0.99 (0.8-1.2cm) M-Mode DIMENSIONS Left Atrium (MM)2.99 (2.5-4.0cm)IVSd0.91 (0.7-1.1cm) Aortic Root2.94 (2.2-3.7cm)LVDd5.02 (4.0-5.6cm) Aortic Cusp Exc.1.91 (1.5-2.0cm)PWd0.93 (0.7-1.1cm) IVSs1.19 cmFS (%) 31 % LVDs3.47 (2.0-3.8cm)PWs1.34 cm Mitral Valve E/A ratio0.0 TDI E/Lateral E'0.0E/Medial E'0.0 Pulmonary Valve PV Peak Tjmiwstd13.9cm/s Tricuspid Valve TR Peak [id number]/sRAP [id number] Peak Gr.27mmHg [id number] LEFT VENTRICLE The left ventricle is normal size. There is normal left ventricular wall thickness. The left ventricular function is normal. The left ventricular ejection fraction is within the normal range. The Ejection Fraction is 60-65%. There is normal LV segmental wall motion. The left ventricular diastolic function is normal. RIGHT VENTRICLE The right ventricle is normal size. There is normal right ventricular wall thickness. The right ventricular systolic function is normal. ATRIA The left atrium size is normal. The right atrium size is normal. AORTIC VALVE The aortic valve is normal in structure. No aortic regurgitation is present. There is no aortic valvular stenosis. MITRAL VALVE The mitral valve is normal in structure. There is no mitral valve stenosis. There is no mitral valve regurgitation noted. TRICUSPID VALVE The tricuspid valve is normal in structure. There is no tricuspid valve regurgitation noted. There is no tricuspid valve stenosis. PULMONIC VALVE The pulmonary valve is normal in structure. There is no pulmonic valvular regurgitation. GREAT VESSELS The aortic root is normal in size. The IVC is normal in size and collapses >50% with inspiration. PERICARDIAL EFFUSION The pericardium appears normal. <Conclusion> The left ventricle is normal size. The left ventricular function is normal. The left ventricular ejection fraction is within the normal range. The Ejection Fraction is 60-65%.
--- NOTE | 2017-05-24 12:13 | CP.PCM.CON ---
History of Present Illness - History of Present Illness History of Present Illness: ID Note- Asked to see this patient at the request of Dr.Pierre Mills for bacteremia and UTI. HPI- Patient is a pleasant 52 year old female who was recently diagnosed with diabetes and states has been on meds for approximately 1 month but yesterday she was at [facility] and was found to be hyperglycemic in high 300's and hence she was transferred here for further evaluation and treatment. I'm asked to see the patient because she has e.coli UTI and bacteremia. Pt. denies any dysurea or urinary frequency, denies any fever or chills, denies any nausea or vomiting, denies any abd. pain, denies any diarrhea, she deos c/o vaginal itching for past few days. Allergy- Denies, NKDA SxHx: Denies SHx: Denies x3. Lives with . FHx: Mother: HTN Siblings: DM Review of Systems - Review of Systems Review of Systems: ROS- denies any fever or chills, denies any CROCKETT, denies any cough, denies any sob, denies any chest pain, denies any abd. pain, denies any nausea or vomiting, denies any diarrhea, denies any dysurea or polyurea c/o dry mouth and increased thirst. c/o vahinal itching Past Patient History - Infectious Disease Hx of Infectious Diseases: None - Tetanus Immunizations Tetanus Immunization: Unknown - Past Medical History & Family History Past Medical History?: No - Past Social History Smoking Status: Never Smoked Alcohol: None Drugs: Denies Home Situation {Lives}: With Family - CARDIAC Hx Cardiac Disorders: No - PULMONARY Hx Respiratory Disorders: No - NEUROLOGICAL Hx Neurological Disorder: No - HEENT Hx HEENT Problems: No - RENAL Hx Chronic Kidney Disease: No - ENDOCRINE/METABOLIC Hx Diabetes Mellitus Type 2: Yes - HEMATOLOGICAL/ONCOLOGICAL Hx Blood Disorders: No - INTEGUMENTARY Hx Dermatological Problems: No - MUSCULOSKELETAL/RHEUMATOLOGICAL Hx Musculoskeletal Disorders: No Hx Falls: No - GASTROINTESTINAL Hx Gastrointestinal Disorders: No - GENITOURINARY/GYNECOLOGICAL Hx Genitourinary Disorders: No - PSYCHIATRIC Hx Psychophysiologic Disorder: No - SURGICAL HISTORY Hx Surgeries: No - ANESTHESIA Hx Anesthesia: No Meds Allergies/Adverse Reactions: Allergies Allergy/AdvReac Type Severity Reaction Status Date / Time No Known Allergies Allergy Verified 05/21/17 10:04 - Medications Medications: Current Medications Atorvastatin Calcium (Lipitor) 20 mg PO DAILY [facility] Last Admin: 05/24/17 09:33 Dose: 20 mg Dextrose (Dextrose 50% Inj) 0 ml IV STAT PRN; Protocol PRN Reason: Hypoglycemia Protocol Dextrose (Glutose 15) 0 gm PO ONCE PRN; Protocol PRN Reason: Hypoglycemia Protocol Enoxaparin Sodium (Lovenox) 40 mg SC DAILY [facility] PRN Reason: Protocol Last Admin: 05/24/17 09:34 Dose: 40 mg Fluconazole (Diflucan) 200 mg PO DAILY [facility] PRN Reason: Protocol Glucagon (Glucagen Diagnostic Kit) 0 mg IM STAT PRN; Protocol PRN Reason: Hypoglycemia Protocol Ciprofloxacin (Cipro 400mg/200ml Dsw) 400 mg in 200 mls @ 200 mls/hr IVPB Q12 [facility] PRN Reason: Protocol Last Admin: 05/24/17 09:29 Dose: 200 mls/hr Vancomycin HCl 1 gm/ Sodium (Chloride) 250 mls @ 166.667 mls/hr IVPB Q12H [facility] PRN Reason: Protocol Insulin Detemir (Levemir) 12 units SC HS [facility] Insulin Human Regular (Humulin R) 0 units SC ACHS [facility] PRN Reason: Protocol Last Admin: 05/24/17 06:33 Dose: 3 units Metformin HCl (Glucophage) 500 mg PO BID [facility] Last Admin: 05/24/17 09:33 Dose: 500 mg Physical Exam - Constitutional Appears: No Acute Distress - Head Exam Head Exam: ATRAUMATIC - Eye Exam Eye Exam: EOMI, PERRL - ENT Exam Additional comments: dry oral mucosa - Neck Exam Neck exam: Positive for: Full Rom - Respiratory Exam Respiratory Exam: Clear to Auscultation Bilateral, NORMAL BREATHING PATTERN - Cardiovascular Exam Cardiovascular Exam: RRR, +S1, +S2 - GI/Abdominal Exam GI & Abdominal Exam: Normal Bowel Sounds, Soft Additional comments: NT, ND - Exam Additional comments: external genital exam (visulaization only with nurse present as it consultant) , whitish fungal like d/c seen with slight erythema - Extremities Exam Extremities exam: Positive for: normal inspection - Neurological Exam Neurological exam: Alert, Oriented x3 Results - Vital Signs Recent Vital Signs: Last Vital Signs Temp 98.4 F 05/24/17 08:48 Pulse 96 H 05/24/17 08:48 Resp 17 05/24/17 08:48 BP 126/69 05/24/17 08:48 Pulse Ox 97 05/24/17 08:48 - Labs Result Diagrams: 05/23/17 05:40 05/23/17 05:40 Labs: Laboratory Results - last 24 hr 05/23/17 05/23/17 05/23/17 05:40 05:40 15:40 POC Glucose (mg/dL) 288 H 25-OH Vitamin D Total < 12.8 L Folate 6.3 05/23/17 05/24/17 05/24/17 21:31 02:57 05:49 POC Glucose (mg/dL) 323 H 295 H 239 H 25-OH Vitamin D Total Folate 05/24/17 10:52 POC Glucose (mg/dL) 378 H 25-OH Vitamin D Total Folate Laboratory Results - last 72 hr 05/21/17 05/21/17 05/21/17 09:55 13:03 15:14 WBC RBC Hgb Hct MCV MCH MCHC RDW Plt Count MPV Neut % (Auto) Lymph % (Auto) Ogle % (Auto) Eos % (Auto) Baso % (Auto) Neut # Lymph # Ogle # Eos # Baso # Sodium Potassium Chloride Carbon Dioxide Anion Gap BUN Creatinine Est GFR ( Amer) Est GFR (Non-Af Amer) POC Glucose (mg/dL) 450 H* 327 H 290 H Random Glucose Lactic Acid Calcium Magnesium Vitamin B12 25-OH Vitamin D Total Folate Procalcitonin HIV-1 Ab Rapid Screen 05/21/17 05/21/17 05/22/17 17:18 21:44 05:15 WBC 17.8 H RBC 3.63 L Hgb 11.4 L Hct 34.0 MCV 93.4 MCH 31.5 H MCHC 33.7 RDW 13.1 Plt Count 272 MPV 8.4 Neut % (Auto) 87.9 H Lymph % (Auto) 6.5 L Ogle % (Auto) 5.5 Eos % (Auto) 0.0 Baso % (Auto) 0.1 Neut # 15.7 H Lymph # 1.2 Ogle # 1.0 H Eos # 0.0 Baso # 0.0 Sodium Potassium Chloride Carbon Dioxide Anion Gap BUN Creatinine Est GFR ( Amer) Est GFR (Non-Af Amer) POC Glucose (mg/dL) 395 H 228 H Random Glucose Lactic Acid Calcium Magnesium Vitamin B12 25-OH Vitamin D Total Folate Procalcitonin HIV-1 Ab Rapid Screen 05/22/17 05/22/17 05/22/17 05:15 05:15 06:27 WBC RBC Hgb Hct MCV MCH MCHC RDW Plt Count MPV Neut % (Auto) Lymph % (Auto) Ogle % (Auto) Eos % (Auto) Baso % (Auto) Neut # Lymph # Ogle # Eos # Baso # Sodium 145 Potassium 3.6 Chloride 106 Carbon Dioxide 32 H Anion Gap 11 BUN 11 Creatinine 0.6 L Est GFR ( Amer) > 60 Est GFR (Non-Af Amer) > 60 POC Glucose (mg/dL) 125 H Random Glucose 129 H Lactic Acid Calcium 8.9 Magnesium 1.9 Vitamin B12 25-OH Vitamin D Total Folate Procalcitonin HIV-1 Ab Rapid Screen Non reactive 05/22/17 05/22/17 05/22/17 11:29 12:39 12:39 WBC RBC Hgb Hct MCV MCH MCHC RDW Plt Count MPV Neut % (Auto) Lymph % (Auto) Ogle % (Auto) Eos % (Auto) Baso % (Auto) Neut # Lymph # Ogle # Eos # Baso # Sodium Potassium Chloride Carbon Dioxide Anion Gap BUN Creatinine Est GFR ( Amer) Est GFR (Non-Af Amer) POC Glucose (mg/dL) 320 H Random Glucose Lactic Acid 1.1 Calcium Magnesium Vitamin B12 25-OH Vitamin D Total Folate Procalcitonin < 0.05 L HIV-1 Ab Rapid Screen 05/22/17 05/22/17 05/23/17 15:57 21:12 05:14 WBC RBC Hgb Hct MCV MCH MCHC RDW Plt Count MPV Neut % (Auto) Lymph % (Auto) Ogle % (Auto) Eos % (Auto) Baso % (Auto) Neut # Lymph # Ogle # Eos # Baso # Sodium Potassium Chloride Carbon Dioxide Anion Gap BUN Creatinine Est GFR ( Amer) Est GFR (Non-Af Amer) POC Glucose (mg/dL) 319 H 280 H 174 H Random Glucose Lactic Acid Calcium Magnesium Vitamin B12 25-OH Vitamin D Total Folate Procalcitonin HIV-1 Ab Rapid Screen 05/23/17 05/23/17 05/23/17 05:40 05:40 05:40 WBC 12.7 H RBC 3.48 L Hgb 11.0 L Hct 32.2 L MCV 92.8 MCH 31.6 H MCHC 34.1 RDW 12.9 Plt Count 273 MPV 8.1 Neut % (Auto) 84.0 H Lymph % (Auto) 10.4 L Ogle % (Auto) 5.4 Eos % (Auto) 0.1 Baso % (Auto) 0.1 Neut # 10.6 H Lymph # 1.3 Ogle # 0.7 Eos # 0.0 Baso # 0.0 Sodium 143 Potassium 3.9 Chloride 106 Carbon Dioxide 32 H Anion Gap 9 L BUN 12 Creatinine 0.6 L Est GFR ( Amer) > 60 Est GFR (Non-Af Amer) > 60 POC Glucose (mg/dL) Random Glucose 176 H Lactic Acid Calcium 8.5 Magnesium Vitamin B12 871 25-OH Vitamin D Total < 12.8 L Folate 6.3 Procalcitonin HIV-1 Ab Rapid Screen 05/23/17 05/23/17 05/23/17 11:22 15:40 21:31 WBC RBC Hgb Hct MCV MCH MCHC RDW Plt Count MPV Neut % (Auto) Lymph % (Auto) Ogle % (Auto) Eos % (Auto) Baso % (Auto) Neut # Lymph # Ogle # Eos # Baso # Sodium Potassium Chloride Carbon Dioxide Anion Gap BUN Creatinine Est GFR ( Amer) Est GFR (Non-Af Amer) POC Glucose (mg/dL) 139 H 288 H 323 H Random Glucose Lactic Acid Calcium Magnesium Vitamin B12 25-OH Vitamin D Total Folate Procalcitonin HIV-1 Ab Rapid Screen 05/24/17 05/24/17 05/24/17 02:57 05:49 10:52 WBC RBC Hgb Hct MCV MCH MCHC RDW Plt Count MPV Neut % (Auto) Lymph % (Auto) Ogle % (Auto) Eos % (Auto) Baso % (Auto) Neut # Lymph # Ogle # Eos # Baso # Sodium Potassium Chloride Carbon Dioxide Anion Gap BUN Creatinine Est GFR ( Amer) Est GFR (Non-Af Amer) POC Glucose (mg/dL) 295 H 239 H 378 H Random Glucose Lactic Acid Calcium Magnesium Vitamin B12 25-OH Vitamin D Total Folate Procalcitonin HIV-1 Ab Rapid Screen Microbiology 05/21/17 14:11 Blood Blood Culture - Final Escherichia Coli 05/21/17 14:11 Blood Gram Stain - Final 05/21/17 14:11 Urine Urine Culture - Final Escherichia Coli Beta Hemolytic Strep Group B Accession No. : [id number] Patient Name / ID : CORA MARIE / [id number] Exam Date : 05/21/2017 11:02:27 ( Approved ) Study Comment : Sex / Age : F / 52Y Creator : Julisa Mills MD Dictator : Julisa Mills MD Railroad Watchman : Study Abroad Advisor : Julisa Mills MD Approver2 : Report Date : 05/21/2017 11:34:48 My Comment : HISTORY: infectious work up COMPARISON: Obstructive series performed 04/29/17 TECHNIQUE: Chest PA and lateral FINDINGS: Examination limited by habitus. LUNGS: No focal consolidation. Please note that chest x-ray has limited sensitivity for the detection of pulmonary masses. PLEURA: No significant pleural effusion identified. No definite pneumothorax . CARDIOVASCULAR: Heart size appears within normal limits. OSSEOUS STRUCTURES: Mild degenerative changes. VISUALIZED UPPER ABDOMEN: Unremarkable. OTHER FINDINGS: None. IMPRESSION: No focal consolidation, significant pleural effusion, or definite pneumothorax identified. Assessment & Plan (1) Urinary tract infectious disease Status: Acute (2) DKA (diabetic ketoacidosis) Status: Acute (3) Bacteremia due to Escherichia coli Status: Acute - Assessment and Plan (Free Text) Assessment: A/P- 52 year old female with newly diagnosed DM II admitted with hyperglycemia and high ketone levels. found to have E.COli and group B strep UTI and E.coli bacteremia. afebrile had high leukocytosis on admission but istrending down TTE- no mention of any vegetations. Plan- check 2 more blood cx. pt. has responded well to the current regimen of IV cipro and vanco that was initiated by the primary team and hence advise to continue with this regimen. advise to keep vanco trough <15. pt. would need total of 14 days of antibiotic therpay for the e.coli bacteremia ( can be given as outpatient as well once pt. has 2 negative blood cx and once her glucose is better controlled) advise to give 3 days of oral fluconazole for what seems to be vaginitis. would also advise for pt. to be seen by DIELECTRIC TESTER for vaginal exam and culture r/o BV. All above d/w patient and she verbalizes full understanding of all above. Thank you for allowing me to take part in the care of this patient.
[2017-05-24] MEDS ORDERED: Insulin NPH Human 100 Units/ml Inj SC SCH (18:00)
[2017-05-25 07:13] LABS: BASO % 0.4 % (0.0-2.0); EOS % 0.4 % (0.0-4.0); HEMATOCRIT 31.6 % (34.0-47.0); LYMPH # 1.5 K/uL (1.0-4.3); LYMPH % 16.2 % (20.0-40.0); MEAN CELL VOLUME 91.6 fl (81.0-99.0); MEAN CORPUSCULAR HEMOGLOBIN 32.1 pg (27.0-31.0); MEAN PLATELET VOLUME 8.6 fl (7.2-11.7); MONO # 0.6 K/uL (0.0-0.8); MONO % 6.4 % (0.0-10.0); NEUT % 76.6 % (50.0-75.0); RED CELL DISTRIBUTION WIDTH 12.9 % (11.5-14.5); WHITE BLOOD COUNT 9.1 K/uL (4.8-10.8)
[2017-05-25 07:23] LABS: ALB/GLOB RATIO 0.8 (1.0-2.1); ALKALINE PHOSPHATASE 143 U/L (38-126); ALT/SGPT 27 U/L (9-52); AST/SGOT 20 U/L (14-36); BILIRUBIN,TOTAL 0.3 mg/dl (0.2-1.3); BLOOD UREA NITROGEN 14 mg/dl (7-17); CALCIUM 8.6 mg/dL (8.4-10.2); CARBON DIOXIDE 29 mmol/L (22-30); CHLORIDE 100 mmol/L (98-107); GFR AFRICAN-AMERICAN > 60; GLUCOSE,RANDOM 322 mg/dL (65-105); POTASSIUM 3.8 MMOL/L (3.6-5.0); SODIUM 136 mmol/l (132-148); TOTAL PROTEIN 6.3 G/DL (6.3-8.2)
--- NOTE | 2017-05-25 07:39 | CP.PCM.PN ---
Subjective - Date & Time of Evaluation Date of Evaluation: 05/25/17 Time of Evaluation: 07:39 - Subjective Subjective: 52 YO F is seen at bedside doing well. Patient slept well over night. Has been eating well. Blood sugars have remained elevated. - Denies any chest pain, SOB, N/V/D, blurring of vision. Objective - Vital Signs/Intake and Output Vital Signs (last 24 hours): Temp Pulse Resp BP Pulse Ox 98.1 F 81 18 123/72 96 05/25/17 00:18 05/25/17 00:18 05/25/17 00:18 05/25/17 00:18 05/25/17 00:18 - Medications Medications: Current Medications Atorvastatin Calcium (Lipitor) 20 mg PO DAILY [facility] Last Admin: 05/24/17 09:33 Dose: 20 mg Dextrose (Dextrose 50% Inj) 0 ml IV STAT PRN; Protocol PRN Reason: Hypoglycemia Protocol Dextrose (Glutose 15) 0 gm PO ONCE PRN; Protocol PRN Reason: Hypoglycemia Protocol Enoxaparin Sodium (Lovenox) 40 mg SC DAILY [facility] PRN Reason: Protocol Last Admin: 05/24/17 09:34 Dose: 40 mg Fluconazole (Diflucan) 200 mg PO DAILY [facility] PRN Reason: Protocol Glucagon (Glucagen Diagnostic Kit) 0 mg IM STAT PRN; Protocol PRN Reason: Hypoglycemia Protocol Ciprofloxacin (Cipro 400mg/200ml Dsw) 400 mg in 200 mls @ 200 mls/hr IVPB Q12 [facility] PRN Reason: Protocol Last Admin: 05/24/17 21:41 Dose: 200 mls/hr Vancomycin HCl 1 gm/ Sodium (Chloride) 250 mls @ 166.667 mls/hr IVPB Q12H [facility] PRN Reason: Protocol Last Admin: 05/24/17 23:41 Dose: 166.667 mls/hr Insulin Human NPH (Humulin N) 10 units SC QAM [facility] Insulin Human NPH (Humulin N) 4 units SC QPM [facility] Last Admin: 05/24/17 17:08 Dose: 4 units Insulin Human Regular (Humulin R) 0 units SC ACHS [facility] PRN Reason: Protocol Last Admin: 05/24/17 21:44 Dose: Not Given Metformin HCl (Glucophage) 500 mg PO BID [facility] Last Admin: 05/24/17 17:07 Dose: 500 mg - Labs Labs: 05/25/17 05:25 05/25/17 05:25 - Constitutional Appears: No Acute Distress - Head Exam Head Exam: NORMAL INSPECTION - Eye Exam Eye Exam: Normal appearance - Respiratory Exam Respiratory Exam: Clear to Ausculation Bilateral, NORMAL BREATHING PATTERN. absent: Rhonchi, Wheezes - Cardiovascular Exam Cardiovascular Exam: REGULAR RHYTHM, +S1, +S2 - Exam Additional comments: Slight whitish colored vaginal discharge. No foul odor. Cultures taken for BV. Female chaparone in room. OBGYN attending in room. No CMT tenderness - Extremities Exam Extremities Exam: Normal Inspection. absent: Calf Tenderness - Neurological Exam Neurological Exam: Alert, Awake, CN II-XII Intact - Skin Skin Exam: Normal Color, Warm Assessment and Plan - Assessment and Plan (Free Text) Assessment: 52 y/o F with PMHx of recently diagnosed DM is admitted for hyperglycemia Bacteremia Gram neg rods -Likely present on admission -WBC improving trended down from 12.7 to 9.1 -Bcx growing Gram neg rods. - Repeat blood culture x 1 is negative. Repeat blood cultures have been ordered. -Ucx positive for E.Coli sensitive to cipro and GBS sensitive to Vanco -Cipro to IV 400mg q12h - Change dosage of Vancomycin 1g Q12 to 750mg Q12 ( Vanco day 3). Goal is to keep vanco trough <15 as per ID - Repeat Vanco trough on saturday half an hour before morning dose. -Echo did not show any vegetation - Consult ID Uncontrolled DM type 2 with hyperglycemia without DKA - uncontrolled -Stop NPH insulin. - Patients metformin dosage has been increased to 1000mg BID - Glipizide 10mg BID -C/W Atorvastatin 20 mg daily -SSRI/accuchecks with meals -HGbA1c 1 month ago 10.9 -urine microalbumin/ Creatinine ratio : 239. Will start patient with lisinopril 5mg for renal protection. -Diabetic diet. -police specialist and Director Global Sales consulted UTI positive for GBS and E.Coli acute - Ucx + for E.Coli sensitive to Cipro. GBS sensitive to Vanco. - WBC Improving - Cipro q12h 400 mg IV(Day 5). Will need total of 14 days. - Vancomycin (Day 3) Oral and Vaginal candidiasis - C/W Fluconazole 200 mg PO daily(day 5) - Vaginal Cultures taken for Group B strep, yesterday evening with OBGYN attending. Prophylaxis Lovenox 40mg daily
[2017-05-25] MEDS: Insulin Regular 100 units/ml SC SCH ×4 (07:53→21:40)
[2017-05-25] MEDS: Ciprofloxacin 400mg/200ml D5W 400 MG/200 ML BAG IVPB SCH ×2 (08:39→21:33)
[2017-05-25 08:49] LABS: MICROALBUMIN 4.5 mg/dL
[2017-05-25] MEDS: Enoxaparin 40 mg Syringe SC SCH (08:51)
[2017-05-25] MEDS ORDERED: Insulin NPH Human 100 Units/ml Inj SC SCH ×3 (09:00→12:55)
[2017-05-26 07:33] LABS: HEMATOCRIT 30.7 % (34.0-47.0); MEAN CELL VOLUME 91.7 fl (81.0-99.0); MEAN CORPUSCULAR HEMOGLOBIN 31.8 pg (27.0-31.0); MEAN CORPUSCULAR HGB CONC 34.7 g/dL (33.0-37.0); RED CELL DISTRIBUTION WIDTH 12.8 % (11.5-14.5)
[2017-05-26] MEDS: Insulin Regular 100 units/ml SC SCH ×3 (07:39→16:56)
[2017-05-26 07:44] LABS: ALB/GLOB RATIO 0.8 (1.0-2.1); ALKALINE PHOSPHATASE 160 U/L (38-126); ALT/SGPT 40 U/L (9-52); AST/SGOT 39 U/L (14-36); BILIRUBIN,TOTAL 0.3 mg/dl (0.2-1.3); BLOOD UREA NITROGEN 16 mg/dl (7-17); CALCIUM 8.4 mg/dL (8.4-10.2); CARBON DIOXIDE 32 mmol/L (22-30); CHLORIDE 98 mmol/L (98-107); GFR AFRICAN-AMERICAN > 60; GLUCOSE,RANDOM 292 mg/dL (65-105); POTASSIUM 3.8 MMOL/L (3.6-5.0); SODIUM 135 mmol/l (132-148); TOTAL PROTEIN 6.4 G/DL (6.3-8.2)
[2017-05-26] MEDS: Ciprofloxacin 400mg/200ml D5W 400 MG/200 ML BAG IVPB SCH ×2 (09:52→21:21)
[2017-05-26] MEDS: Enoxaparin 40 mg Syringe SC SCH (09:54)
--- NOTE | 2017-05-26 10:33 | CP.PCM.PN ---
Subjective - Date & Time of Evaluation Date of Evaluation: 05/26/17 Time of Evaluation: 09:31 - Subjective Subjective: 52 yo F was seen and examined at bedside. Patient states she is doing well. Patient slept well over night. Has been eating well. Patient had one episode of BS 81, though denies diaphoresis, dizziness, nausea, vomiting, pain, or change in mental status. Patient diabetic regime has been adjusted in last 24hrs. Denies any chest pain, SOB, N/V/D, blurring of vision. Objective - Vital Signs/Intake and Output Vital Signs (last 24 hours): Temp Pulse Resp BP Pulse Ox 98.1 F 81 20 126/75 97 05/26/17 08:26 05/26/17 08:26 05/26/17 08:26 05/26/17 09:53 05/26/17 08:26 - Medications Medications: Current Medications Atorvastatin Calcium (Lipitor) 20 mg PO DAILY [facility] Last Admin: 05/26/17 09:54 Dose: 20 mg Dextrose (Dextrose 50% Inj) 0 ml IV STAT PRN; Protocol PRN Reason: Hypoglycemia Protocol Dextrose (Glutose 15) 0 gm PO ONCE PRN; Protocol PRN Reason: Hypoglycemia Protocol Enoxaparin Sodium (Lovenox) 40 mg SC DAILY [facility] PRN Reason: Protocol Last Admin: 05/26/17 09:54 Dose: 40 mg Fluconazole (Diflucan) 200 mg PO DAILY [facility] PRN Reason: Protocol Last Admin: 05/26/17 09:53 Dose: 200 mg Glipizide (Glucotrol) 10 mg PO BIDAC [facility] Last Admin: 05/26/17 08:53 Dose: 10 mg Glucagon (Glucagen Diagnostic Kit) 0 mg IM STAT PRN; Protocol PRN Reason: Hypoglycemia Protocol Ciprofloxacin (Cipro 400mg/200ml Dsw) 400 mg in 200 mls @ 200 mls/hr IVPB Q12 [facility] PRN Reason: Protocol Last Admin: 05/26/17 09:52 Dose: 200 mls/hr Vancomycin HCl 750 mg/ Sodium (Chloride) 250 mls @ 166.667 mls/hr IVPB Q12H [facility] PRN Reason: Protocol Last Admin: 05/26/17 01:00 Dose: 166.667 mls/hr Insulin Human Regular (Humulin R) 0 units SC ACHS [facility] PRN Reason: Protocol Last Admin: 05/26/17 07:39 Dose: 4 units Lisinopril (Zestril) 5 mg PO DAILY [facility] Last Admin: 05/26/17 09:53 Dose: 5 mg Metformin HCl (Glucophage) 1,000 mg PO BID [facility] Last Admin: 05/26/17 09:53 Dose: 1,000 mg - Labs Labs: 05/26/17 06:30 05/26/17 06:30 - Constitutional Appears: Well, Non-toxic, No Acute Distress - Head Exam Head Exam: ATRAUMATIC, NORMAL INSPECTION, NORMOCEPHALIC - Eye Exam Eye Exam: Normal appearance - Neck Exam Neck Exam: Normal Inspection - Respiratory Exam Respiratory Exam: Clear to Ausculation Bilateral, NORMAL BREATHING PATTERN - Cardiovascular Exam Cardiovascular Exam: REGULAR RHYTHM, +S1, +S2. absent: Murmur - GI/Abdominal Exam GI & Abdominal Exam: Soft, Normal Bowel Sounds. absent: Tenderness - Extremities Exam Extremities Exam: Normal Inspection - Neurological Exam Neurological Exam: Alert, Awake - Psychiatric Exam Psychiatric exam: Normal Affect, Normal Mood - Skin Skin Exam: Dry, Intact, Normal Color, Warm Assessment and Plan - Assessment and Plan (Free Text) Assessment: 52 y/o F with PMHx of recently diagnosed DM is admitted for hyperglycemia complicated by bacteremia. Bacteremia Gram neg rods -Likely present on admission -WBC improving trended down from 12.7 to 9.1 -Bcx growing Gram neg rods. -Repeat blood culture x 1 is negative. Repeat blood cultures have been ordered/ pending -Ucx positive for E.Coli sensitive to cipro and GBS sensitive to Vanco -Cipro IV 400mg q12h -Change dosage of Vancomycin 1g Q12 to 750mg Q12 yesterday ( Vanco day 4). Goal is to keep vanco trough <15 as per ID -Repeat Vanco trough on saturday half an hour before morning dose. -Echo did not show any vegetation -ID consult appreciated Uncontrolled DM type 2 with hyperglycemia without DKA -uncontrolled -Stopped NPH insulin yesterday and metformin dosage has been increased to 1000mg BID and Glipizide 10mg BID was added due to concern for patient's understanding of insulin therapy and her success with treatment as an outpatient -will increase daytime dosing of glipiide -C/W Atorvastatin 20 mg daily -accucheck monitoring -HGbA1c 1 month ago 10.9 -urine microalbumin/ Creatinine ratio : 239. - on lisinopril 5mg for renal protection. -Diabetic diet. -early childhood educator aide and Case Liner consulted UTI positive for GBS and E.Coli - Ucx + for E.Coli sensitive to Cipro. GBS sensitive to Vanco. - WBC Improving - Cipro q12h 400 mg IV(Day 6). Will need total of 14 days. - Vancomycin (Day 4) Oral and Vaginal candidiasis - C/W Fluconazole 200 mg PO daily - 5 day course completed, will d/c at this time. - Vaginal Cultures taken will follow up and adjust accordingly. Prophylaxis - Lovenox 40mg daily
[2017-05-26] MEDS ORDERED: Insulin Regular 100 units/ml SC STA (11:34)
[2017-05-27] MEDS: Insulin Regular 100 units/ml SC SCH ×4 (09:25→16:24)
[2017-05-27] MEDS: Enoxaparin 40 mg Syringe SC SCH (09:28)
[2017-05-27] MEDS: Ciprofloxacin 400mg/200ml D5W 400 MG/200 ML BAG IVPB SCH (09:33)
--- NOTE | 2017-05-27 10:18 | CP.PCM.PN ---
Subjective - Date & Time of Evaluation Date of Evaluation: 05/27/17 Time of Evaluation: 07:30 Objective - Vital Signs/Intake and Output Vital Signs (last 24 hours): Temp Pulse Resp BP Pulse Ox 98 F 83 20 108/69 97 05/27/17 08:17 05/27/17 08:17 05/27/17 08:17 05/27/17 08:17 05/27/17 08:17 - Medications Medications: Current Medications Atorvastatin Calcium (Lipitor) 20 mg PO DAILY [facility] Last Admin: 05/27/17 09:30 Dose: 20 mg Dextrose (Dextrose 50% Inj) 0 ml IV STAT PRN; Protocol PRN Reason: Hypoglycemia Protocol Dextrose (Glutose 15) 0 gm PO ONCE PRN; Protocol PRN Reason: Hypoglycemia Protocol Enoxaparin Sodium (Lovenox) 40 mg SC DAILY [facility] PRN Reason: Protocol Last Admin: 05/27/17 09:28 Dose: 40 mg Glipizide (Glucotrol) 20 mg PO ACB [facility] Last Admin: 05/27/17 09:29 Dose: 20 mg Glipizide (Glucotrol) 10 mg PO ACD [facility] Glucagon (Glucagen Diagnostic Kit) 0 mg IM STAT PRN; Protocol PRN Reason: Hypoglycemia Protocol Ciprofloxacin (Cipro 400mg/200ml Dsw) 400 mg in 200 mls @ 200 mls/hr IVPB Q12 [facility] PRN Reason: Protocol Last Admin: 05/27/17 09:33 Dose: 200 mls/hr Vancomycin HCl 750 mg/ Sodium (Chloride) 250 mls @ 166.667 mls/hr IVPB Q12H [facility] PRN Reason: Protocol Last Admin: 05/27/17 01:01 Dose: 166.667 mls/hr Insulin Human Regular (Humulin R) 0 units SC ACHS [facility] PRN Reason: Protocol Last Admin: 05/27/17 09:25 Dose: Not Given Lisinopril (Zestril) 5 mg PO DAILY [facility] Last Admin: 05/27/17 09:28 Dose: 5 mg Metformin HCl (Glucophage) 1,000 mg PO BID [facility] Last Admin: 05/27/17 09:29 Dose: 1,000 mg - Labs Labs: 05/26/17 06:30 05/26/17 06:30 Assessment and Plan - Assessment and Plan (Free Text) Assessment: 52 y/o F with PMHx of recently diagnosed DM is admitted for hyperglycemia complicated by bacteremia. Bacteremia Gram neg rods -Likely present on admission -WBC improving trended down from 12.7 to 9.1 -Bcx growing Gram neg rods. -Repeat blood culture x 2 is negative. The second blood culture is negative for 24 hours -Ucx positive for E.Coli sensitive to cipro and GBS sensitive to Vanco -Cipro IV 400mg q12h -Change dosage of Vancomycin 1g Q12 to 750mg Q12 yesterday ( Vanco day 4). Goal is to keep vanco trough <15 as per ID -Repeat Vanco trough on saturday half an hour before morning dose. -Echo did not show any vegetation -ID consult appreciated Uncontrolled DM type 2 with hyperglycemia without DKA -uncontrolled -Stopped NPH insulin yesterday and metformin dosage has been increased to 1000mg BID and Glipizide 10mg BID was added due to concern for patient's understanding of insulin therapy and her success with treatment as an outpatient -will increase daytime dosing of glipiide -C/W Atorvastatin 20 mg daily -accucheck monitoring -HGbA1c 1 month ago 10.9 -urine microalbumin/ Creatinine ratio : 239. - on lisinopril 5mg for renal protection. -Diabetic diet. -early childhood educator aide and Brush Finisher consulted UTI positive for GBS and E.Coli - Ucx + for E.Coli sensitive to Cipro. GBS sensitive to Vanco. - WBC Improving - Cipro q12h 400 mg IV(Day 6). Will need total of 14 days. - Vancomycin (Day 4) Oral and Vaginal candidiasis - C/W Fluconazole 200 mg PO daily - 5 day course completed, will d/c at this time. - Vaginal Cultures taken will follow up and adjust accordingly. Prophylaxis - Lovenox 40mg daily
--- NOTE | 2017-05-27 12:22 | CP.PCM.PN ---
Subjective - Date & Time of Evaluation Date of Evaluation: 05/27/17 Time of Evaluation: 13:30 - Subjective Subjective: ID note- Pt. seen and examined today . pt. in good spirits and states she feels fine and denies any complaintrs today. She denies any nausea, denies any fever or chills, denies any abd. pain, denies any dysurea. pt. wants to go home . Objective - Vital Signs/Intake and Output Vital Signs (last 24 hours): Temp Pulse Resp BP Pulse Ox 98 F 83 20 108/69 97 05/27/17 08:17 05/27/17 08:17 05/27/17 08:17 05/27/17 08:17 05/27/17 08:17 - Medications Medications: Current Medications Atorvastatin Calcium (Lipitor) 20 mg PO DAILY [facility] Last Admin: 05/27/17 09:30 Dose: 20 mg Dextrose (Dextrose 50% Inj) 0 ml IV STAT PRN; Protocol PRN Reason: Hypoglycemia Protocol Dextrose (Glutose 15) 0 gm PO ONCE PRN; Protocol PRN Reason: Hypoglycemia Protocol Enoxaparin Sodium (Lovenox) 40 mg SC DAILY [facility] PRN Reason: Protocol Last Admin: 05/27/17 09:28 Dose: 40 mg Glipizide (Glucotrol) 20 mg PO ACB [facility] Last Admin: 05/27/17 09:29 Dose: 20 mg Glipizide (Glucotrol) 10 mg PO ACD [facility] Glucagon (Glucagen Diagnostic Kit) 0 mg IM STAT PRN; Protocol PRN Reason: Hypoglycemia Protocol Ciprofloxacin (Cipro 400mg/200ml Dsw) 400 mg in 200 mls @ 200 mls/hr IVPB Q12 [facility] PRN Reason: Protocol Last Admin: 05/27/17 09:33 Dose: 200 mls/hr Vancomycin HCl 750 mg/ Sodium (Chloride) 250 mls @ 166.667 mls/hr IVPB Q12H [facility] PRN Reason: Protocol Last Admin: 05/27/17 01:01 Dose: 166.667 mls/hr Insulin Human Regular (Humulin R) 0 units SC ACHS [facility] PRN Reason: Protocol Last Admin: 05/27/17 09:25 Dose: Not Given Lisinopril (Zestril) 5 mg PO DAILY [facility] Last Admin: 05/27/17 09:28 Dose: 5 mg Metformin HCl (Glucophage) 1,000 mg PO QAM [facility] Metformin HCl (Glucophage) 500 mg PO QPM [facility] - Labs Labs: - Additional Findings Additional findings: - Constitutional Appears: No Acute Distress - Head Exam Head Exam: ATRAUMATIC - Eye Exam Eye Exam: EOMI, PERRL - ENT Exam Additional comments: dry oral mucosa - Neck Exam Neck exam: Positive for: Full Rom - Respiratory Exam Respiratory Exam: Clear to Auscultation Bilateral, NORMAL BREATHING PATTERN - Cardiovascular Exam Cardiovascular Exam: RRR, +S1, +S2 - GI/Abdominal Exam GI & Abdominal Exam: Normal Bowel Sounds, Soft Additional comments: NT, ND No CVA tenderness b/l - Extremities Exam Extremities exam: Positive for: normal inspection - Neurological Exam Neurological exam: Alert, Oriented x 3 Laboratory Results - last 72 hr 05/22/17 05/23/17 05/24/17 15:46 15:00 15:28 WBC RBC Hgb Hct MCV MCH MCHC RDW Plt Count MPV Neut % (Auto) Lymph % (Auto) Davis % (Auto) Eos % (Auto) Baso % (Auto) Neut # Lymph # Davis # Eos # Baso # Sodium Potassium Chloride Carbon Dioxide Anion Gap BUN Creatinine Est GFR ( Amer) Est GFR (Non-Af Amer) POC Glucose (mg/dL) 185 H Random Glucose Calcium Total Bilirubin GGT AST ALT Alkaline Phosphatase Total Protein Albumin Globulin Albumin/Globulin Ratio Urine Creatinine 19 L Urine Microalbumin 4.5 Microalb/Creat Ratio 239 H Stool Occult Blood Negative Vancomycin Trough 05/24/17 05/25/17 05/25/17 21:30 05:25 05:25 WBC 9.1 RBC 3.44 L Hgb 11.0 L Hct 31.6 L MCV 91.6 MCH 32.1 H MCHC 35.0 RDW 12.9 Plt Count 275 MPV 8.6 Neut % (Auto) 76.6 H Lymph % (Auto) 16.2 L Davis % (Auto) 6.4 Eos % (Auto) 0.4 Baso % (Auto) 0.4 Neut # 7.0 Lymph # 1.5 Davis # 0.6 Eos # 0.0 Baso # 0.0 Sodium 136 Potassium 3.8 Chloride 100 Carbon Dioxide 29 Anion Gap 11 BUN 14 Creatinine 0.5 L Est GFR ( Amer) > 60 Est GFR (Non-Af Amer) > 60 POC Glucose (mg/dL) 249 H Random Glucose 322 H Calcium 8.6 Total Bilirubin 0.3 GGT AST 20 ALT 27 Alkaline Phosphatase 143 H Total Protein 6.3 Albumin 2.8 L Globulin 3.5 Albumin/Globulin Ratio 0.8 L Urine Creatinine Urine Microalbumin Microalb/Creat Ratio Stool Occult Blood Vancomycin Trough 05/25/17 05/25/17 05/25/17 05:39 10:00 11:00 WBC RBC Hgb Hct MCV MCH MCHC RDW Plt Count MPV Neut % (Auto) Lymph % (Auto) Davis % (Auto) Eos % (Auto) Baso % (Auto) Neut # Lymph # Davis # Eos # Baso # Sodium Potassium Chloride Carbon Dioxide Anion Gap BUN Creatinine Est GFR ( Amer) Est GFR (Non-Af Amer) POC Glucose (mg/dL) 291 H 383 H Random Glucose Calcium Total Bilirubin GGT AST ALT Alkaline Phosphatase Total Protein Albumin Globulin Albumin/Globulin Ratio Urine Creatinine Urine Microalbumin Microalb/Creat Ratio Stool Occult Blood Vancomycin Trough 19.8 H 05/25/17 05/25/17 05/26/17 16:08 21:42 06:13 WBC RBC Hgb Hct MCV MCH MCHC RDW Plt Count MPV Neut % (Auto) Lymph % (Auto) Davis % (Auto) Eos % (Auto) Baso % (Auto) Neut # Lymph # Davis # Eos # Baso # Sodium Potassium Chloride Carbon Dioxide Anion Gap BUN Creatinine Est GFR ( Amer) Est GFR (Non-Af Amer) POC Glucose (mg/dL) 269 H 81 286 H Random Glucose Calcium Total Bilirubin GGT AST ALT Alkaline Phosphatase Total Protein Albumin Globulin Albumin/Globulin Ratio Urine Creatinine Urine Microalbumin Microalb/Creat Ratio Stool Occult Blood Vancomycin Trough 05/26/17 05/26/17 05/26/17 06:30 06:30 11:26 WBC 10.0 RBC 3.35 L Hgb 10.7 L Hct 30.7 L MCV 91.7 MCH 31.8 H MCHC 34.7 RDW 12.8 Plt Count 260 MPV Neut % (Auto) Lymph % (Auto) Davis % (Auto) Eos % (Auto) Baso % (Auto) Neut # Lymph # Davis # Eos # Baso # Sodium 135 Potassium 3.8 Chloride 98 Carbon Dioxide 32 H Anion Gap 9 L BUN 16 Creatinine 0.6 L Est GFR ( Amer) > 60 Est GFR (Non-Af Amer) > 60 POC Glucose (mg/dL) 457 H* Random Glucose 292 H Calcium 8.4 Total Bilirubin 0.3 GGT 103 H AST 39 H D ALT 40 Alkaline Phosphatase 160 H Total Protein 6.4 Albumin 2.8 L Globulin 3.6 Albumin/Globulin Ratio 0.8 L Urine Creatinine Urine Microalbumin Microalb/Creat Ratio Stool Occult Blood Vancomycin Trough 05/26/17 05/26/17 05/27/17 15:59 21:17 06:29 WBC RBC Hgb Hct MCV MCH MCHC RDW Plt Count MPV Neut % (Auto) Lymph % (Auto) Davis % (Auto) Eos % (Auto) Baso % (Auto) Neut # Lymph # Davis # Eos # Baso # Sodium Potassium Chloride Carbon Dioxide Anion Gap BUN Creatinine Est GFR ( Amer) Est GFR (Non-Af Amer) POC Glucose (mg/dL) 256 H 97 99 Random Glucose Calcium Total Bilirubin GGT AST ALT Alkaline Phosphatase Total Protein Albumin Globulin Albumin/Globulin Ratio Urine Creatinine Urine Microalbumin Microalb/Creat Ratio Stool Occult Blood Vancomycin Trough 05/27/17 05/27/17 11:06 13:17 WBC RBC Hgb Hct MCV MCH MCHC RDW Plt Count MPV Neut % (Auto) Lymph % (Auto) Davis % (Auto) Eos % (Auto) Baso % (Auto) Neut # Lymph # Davis # Eos # Baso # Sodium Potassium Chloride Carbon Dioxide Anion Gap BUN Creatinine Est GFR ( Amer) Est GFR (Non-Af Amer) POC Glucose (mg/dL) 436 H* Random Glucose Calcium Total Bilirubin GGT AST ALT Alkaline Phosphatase Total Protein Albumin Globulin Albumin/Globulin Ratio Urine Creatinine Urine Microalbumin Microalb/Creat Ratio Stool Occult Blood Vancomycin Trough 10.2 H Microbiology 05/24/17 06:30 Blood Blood Culture - Preliminary NO GROWTH AFTER 3 DAYS 05/25/17 16:30 Blood-Venous Blood Culture - Preliminary NO GROWTH AFTER 24 HOURS 05/24/17 17:40 Other: Please Indicate Trichomonas Culture - Final 05/21/17 14:11 Blood Blood Culture - Final Escherichia Coli 05/21/17 14:11 Blood Gram Stain - Final 05/21/17 14:11 Urine Urine Culture - Final Escherichia Coli Beta Hemolytic Strep Group B Assessment and Plan (1) Urinary tract infectious disease Status: Acute (2) DKA (diabetic ketoacidosis) Status: Acute (3) Bacteremia due to Escherichia coli Status: Acute - Assessment and Plan (Free Text) Assessment: A/P- 52 year old female with newly diagnosed DM II admitted with hyperglycemia and high ketone levels. clinically much better. found to have E.COli and group B strep UTI and E.coli bacteremia. repeat blood cx- neg x 2 remains afebrile normal wbc TTE- no mention of any vegetations. Plan- pt. has completed so far 7 days of IV cipro for e.coli bactermia and UTi and 7 days of IV vanco fpr group B sterp in urine cx. since her blood cx repeat onces are all enagtive and she has remained afebrile with normal wbc count, from ID standpoint she can be d/c home on oral cipro for 10 more days for completion of her abx therapy for the e.coli bacteremia and UTI. also would advise to give 7 days of oral bactrim DS BID for the group B strep UTI. advise to check repeat blood cx as outpatient after completion of her abx therapy by her PCP . All above d/w DR.Pierre Mills at length. All above also d/w patient and she verbalizes full understanding of all above.
[2017-05-27 16:07] VITALS: BP 102/69; PULSE 88; RESP 18; TEMP 98.2; O2SAT 99
--- NOTE | 2017-05-27 16:29 | CP.PCM.DIS ---
Provider - Provider Date of Admission: 05/21/17 15:46 Attending physician: Gely Peña MD Primary care physician: NO FAMILY PROVIDER Time Spent in preparation of Discharge (in minutes): 30 Diagnosis - Discharge Diagnosis (1) Bacteremia due to Escherichia coli Status: Acute Hospital Course - Lab Results Lab Results: Micro Results 05/24/17 06:30 Blood Blood Culture - Preliminary NO GROWTH AFTER 3 DAYS 05/25/17 16:30 Blood-Venous Blood Culture - Preliminary NO GROWTH AFTER 24 HOURS 05/24/17 17:40 Other: Please Indicate Trichomonas Culture - Final 05/21/17 14:11 Blood Blood Culture - Final Escherichia Coli 05/21/17 14:11 Blood Gram Stain - Final 05/21/17 14:11 Urine Urine Culture - Final Escherichia Coli Beta Hemolytic Strep Group B Most Recent Lab Values WBC 10.0 K/uL (4.8-10.8) 05/26/17 06:30 RBC 3.35 Mil/uL (3.80-5.20) L 05/26/17 06:30 Hgb 10.7 g/dL (12.0-16.0) L 05/26/17 06:30 Hct 30.7 % (34.0-47.0) L 05/26/17 06:30 MCV 91.7 fl (81.0-99.0) 05/26/17 06:30 MCH 31.8 pg (27.0-31.0) H 05/26/17 06:30 MCHC 34.7 g/dL (33.0-37.0) 05/26/17 06:30 RDW 12.8 % (11.5-14.5) 05/26/17 06:30 Plt Count 260 K/uL (130-400) 05/26/17 06:30 MPV 8.6 fl (7.2-11.7) 05/25/17 05:25 Neut % (Auto) 76.6 % (50.0-75.0) H 05/25/17 05:25 Lymph % (Auto) 16.2 % (20.0-40.0) L 05/25/17 05:25 Hand % (Auto) 6.4 % (0.0-10.0) 05/25/17 05:25 Eos % (Auto) 0.4 % (0.0-4.0) 05/25/17 05:25 Baso % (Auto) 0.4 % (0.0-2.0) 05/25/17 05:25 Neut # 7.0 K/uL (1.8-7.0) 05/25/17 05:25 Lymph # 1.5 K/uL (1.0-4.3) 05/25/17 05:25 Hand # 0.6 K/uL (0.0-0.8) 05/25/17 05:25 Eos # 0.0 K/uL (0.0-0.7) 05/25/17 05:25 Baso # 0.0 K/uL (0.0-0.2) 05/25/17 05:25 Neutrophils % (Manual) 89 % (42-75) H 05/21/17 10:46 Lymphocytes % (Manual) 8 % (20-50) L 05/21/17 10:46 Monocytes % (Manual) 3 % (0-10) 05/21/17 10:46 Toxic Granulation Present 05/21/17 10:46 Platelet Estimate Normal (NORMAL) 05/21/17 10:46 Giant Platelets Present 05/21/17 10:46 Hypochromasia (manual) Slight 05/21/17 10:46 Tear Drop Cells Slight 05/21/17 10:46 pO2 21 mm/Hg (30-55) L 05/21/17 10:42 VBG pH 7.33 (7.32-7.43) 05/21/17 10:42 VBG pCO2 52 mmHg (40-60) 05/21/17 10:42 VBG HCO3 23.5 mmol/L 05/21/17 10:42 VBG O2 Sat (Calc) 37.2 % (40-65) L 05/21/17 10:42 VBG Base Excess 0.5 mmol/L (0.0-2.0) 05/21/17 10:42 Blood Gas Comments 14 05/21/17 10:42 Crit Value Called To Sera rosales r.n. 05/21/17 10:42 Crit Value Read Back Y 05/21/17 10:42 Blood Gas Notified Time 1056 05/21/17 10:42 Sodium 135 mmol/l (132-148) 05/26/17 06:30 Potassium 3.8 MMOL/L (3.6-5.0) 05/26/17 06:30 Chloride 98 mmol/L (98-107) 05/26/17 06:30 Carbon Dioxide 32 mmol/L (22-30) H 05/26/17 06:30 Anion Gap 9 (10-20) L 05/26/17 06:30 BUN 16 mg/dl (7-17) 05/26/17 06:30 Creatinine 0.6 mg/dl (0.7-1.2) L 05/26/17 06:30 Est GFR ( Amer) > 60 05/26/17 06:30 Est GFR (Non-Af Amer) > 60 05/26/17 06:30 POC Glucose (mg/dL) 327 mg/dL (65-110) H 05/27/17 15:38 Random Glucose 292 mg/dL (65-105) H 05/26/17 06:30 Lactic Acid 1.1 MMOL/L (0.7-2.1) 05/22/17 12:39 Calcium 8.4 mg/dL (8.4-10.2) 05/26/17 06:30 Magnesium 1.9 MG/DL (1.6-2.3) 05/22/17 05:15 Total Bilirubin 0.3 mg/dl (0.2-1.3) 05/26/17 06:30 GGT 103 U/L (8-78) H 05/26/17 06:30 AST 39 U/L (14-36) H D 05/26/17 06:30 ALT 40 U/L (9-52) 05/26/17 06:30 Alkaline Phosphatase 160 U/L (38-126) H 05/26/17 06:30 Total Protein 6.4 G/DL (6.3-8.2) 05/26/17 06:30 Albumin 2.8 g/dL (3.5-5.0) L 05/26/17 06:30 Globulin 3.6 gm/dL (2.2-3.9) 05/26/17 06:30 Albumin/Globulin Ratio 0.8 (1.0-2.1) L 05/26/17 06:30 Vitamin B12 871 pg/mL (239-931) 05/23/17 05:40 25-OH Vitamin D Total < 12.8 NG/ML (30.0-100.0) L 05/23/17 05:40 Folate 6.3 ng/mL 05/23/17 05:40 Procalcitonin < 0.05 NG/ML (0.19-0.49) L 05/22/17 12:39 Urine Color Straw (YELLOW) 05/21/17 12:30 Urine Clarity Slighty-cloudy (Clear) 05/21/17 12:30 Urine pH 6.0 (5.0-8.0) 05/21/17 12:30 Ur Specific [place] 1.016 (1.003-1.030) 05/21/17 12:30 Urine Protein Negative mg/dL (NEGATIVE) 05/21/17 12:30 Urine Glucose (UA) >=500 mg/dL (Normal) 05/21/17 12:30 Urine Ketones 20 mg/dL (NEGATIVE) 05/21/17 12:30 Urine Blood Small (NEGATIVE) 05/21/17 12:30 Urine Nitrate Negative (NEGATIVE) 05/21/17 12:30 Urine Bilirubin Negative (NEGATIVE) 05/21/17 12:30 Urine Urobilinogen 0.2-1.0 mg/dL (0.2-1.0) 05/21/17 12:30 Ur Leukocyte Esterase Mod Bebeto/uL (Negative) 05/21/17 12:30 Urine RBC (Auto) 6 /hpf (0-3) H 05/21/17 12:30 Urine Microscopic WBC 18 /hpf (0-5) H 05/21/17 12:30 Ur Squamous Epith Cells 1 /hpf (0-5) 05/21/17 12:30 Urine Bacteria Rare (<OCC) 05/21/17 12:30 Urine Creatinine 19 mg/dL (20-320) L 05/22/17 15:46 Urine Microalbumin 4.5 mg/dL 05/22/17 15:46 Microalb/Creat Ratio 239 (<30) H 05/22/17 15:46 Stool Occult Blood Negative (NEGATIVE) 05/23/17 15:00 Vancomycin Trough 10.2 ug/mL (5.0-10.0) H 05/27/17 13:17 HIV-1 Ab Rapid Screen Non reactive (NON REAC) 05/22/17 05:15 Influenza Typ A,B (EIA) Negative for flu a/b (NEGATIVE) 05/21/17 11:12 - Hospital Course Hospital Course: 52 YO F w/ a recenly diagnosed DM was transferred from [facility] for persistent hyperglycemia. However on admission she was noted to have GBS positive growth UTI along with Bactermia with E coli. She had also been complaining of vaginal pruitis and white discharge. While in the hospital she was treated with IV Vancomycin and Ciprofloxacin. Patient was noted to have Blood cultures x 2 negative and had remained afebrile. ID was consulted during patinets stay. - Patient's diabetic medications were changed , while her stay in the hospital . Her Morning metformin dose was increased to 1000mg in the morning and 500mg in the evening. Glipizide was increased to 20 mg in the morning and 10 mg in the evening. Patient has been advised to Follow up with Dr. Galicia in Jun 04 @ 1 pm - She has also been advised to get blood cultures done before her appointment at the [facility] Discharge medications - Bactrim DS 1 Tab PO BID. - Ciprofloxacin 500mg PO BID - Metformin 1000mg QAM and Take 500mg QPM - Glipizide 20mg QAM,and take 10mg QPM - Lisinopril 5 mg take one tab daily - Atorvastatin 20mg PO Discharge Exam - Head Exam Head Exam: ATRAUMATIC, NORMAL INSPECTION, NORMOCEPHALIC - Eye Exam Eye Exam: Normal appearance - ENT Exam ENT Exam: Mucous Membranes Moist - Respiratory Exam Respiratory Exam: Clear to PA & Lateral, NORMAL BREATHING PATTERN - Cardiovascular Exam Cardiovascular Exam: REGULAR RHYTHM, +S1, +S2 - GI/Abdominal Exam GI & Abdominal Exam: Normal Bowel Sounds, Soft. absent: Tenderness - Neurological Exam Neurological exam: Alert, CN II-XII Intact, Oriented x3 - Skin Skin Exam: Normal Color, Warm Discharge Plan - Discharge Medications Prescriptions: Atorvastatin [Lipitor] 20 mg PO DAILY #30 tab Ciprofloxacin HCl [Cipro] 500 mg PO BID 10 Days tablet GlipiZIDE [Glucotrol] 10 mg PO ACD #30 tab GlipiZIDE [Glucotrol] 20 mg PO ACB #30 tab Lisinopril [Zestril] 5 mg PO DAILY #30 tab MetFORMIN [glucoPHAGE] 1,000 mg PO QAM #30 tab metFORMIN [glucOPHAGE] 500 mg PO QPM #30 tab Sulfamethoxazole/Trimethoprim [Bactrim DS 800 mg-160 mg] 1 tab PO BID 10 Days tab - Follow Up Plan Condition: FAIR Disposition: HOME/ ROUTINE Instructions: Urinary Tract Infection in Women (DC), Diabetic Hyperglycemia (DC ), Sepsis (DC), Sepsis (GEN) Additional Instructions: hacer guillermo con moran primario dentro de 7-10 [place] Referrals: Kaykay Castellon MD [Staff Provider] - Philippe Pierre MD [Medical Doctor] - [facility] [Outside]
[2017-05-28 02:39] LABS: (1-3)-B-D GLUCAN <31 pg/mL
--- NOTE | 2017-05-29 07:48 | PQF DM ---
Dr. Peña DKA is documented in medical record but not in discharge summary. After study was diagnosis of DKA ruled in or ruled out? This form is a permanent part of the medical record Clarification of your documentation is requested to better reflect the severity of illness and intensity of treatment of your patient. Indicators present: [x] Documented diagnosis of Diabetes [] Documented condition [] A1C results [] Diabetic medications [x] Elevated blood glucose [] Nutritional consults [] ADA diet [] Other: [] Location in the medical record that reflects the above clinical findings:[] Treatment Provided: PHYSICIAN'S RESPONSE Based on your medical judgment of the clinical indicators outlined above, are you treating this patient for a known or suspected: [] Diabetes Mellitus, Type I [] Controlled [] Uncontrolled [] Diabetes Mellitus, Type II [] Controlled [] Uncontrolled [] Diabetes, Steroid induced [] Controlled [] Uncontrolled [] Diabetic conditions/complications [] Other, please indicate [] [] If Unable to Determine, please check the box, sign and date. Present On Admission (POA) Indicator: [] Present at the time of admission [] Not present at the time of admission [] Clinically Undetermined In responding to this query, please exercise your independent professional judgment. The fact that a question is asked does not imply that any particular answer is desired or expected. Thank you for your clarification on this documentation. If you have any questions please call:[ ] * Thank you, [ ]Alexandra Tellez smash piecer JORJE
== END 2017-05-27 16:44 | disposition home or self-care (01) | DRG 638 ==
LOC: H.ER 09:38 → H.ERHOLD 15:46 → H.MEDSURG1 17:48
PROVIDERS: ADMIT Family Medicine Geriatric Medicine; ATTEND Family Medicine Geriatric Medicine
DX: E10.65 Type 1 diabetes mellitus with hyperglycemia (principal); R78.81 Bacteremia; B37.0 Candidal stomatitis; B37.3 Candidiasis of vulva and vagina; N39.0 Urinary tract infection, site not specified; B95.1 Streptococcus, group B, as the cause of diseases classified elsewhere; B96.20 Unspecified Escherichia coli [E. coli] as the cause of diseases classified elsewhere; N76.0 Acute vaginitis

== ENCOUNTER 2018-04-27 17:51 | Emergency (ER) | payer SELFPAY ==
[2018-04-27 17:51] VITALS: BMI 19.4
[2018-04-27 18:07] VITALS: RESP 17; TEMP 98.4; O2SAT 99
[2018-04-27] MEDS ORDERED: Tdap Vaccine 0.5 ml Vial (10-64 yrs) IM ONE ×2 (18:32→18:39)
--- NOTE | 2018-04-27 19:23 | ED PDOC ---
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 Patient states she was walking down the stairs when she slipped and hit the right side of her forehead. Patient reports having mild neck pain and denies loss of consciousness, nausea, vomiting, anticoagulant use, other injuries, numbness, tingling, chest pain, and abdominal pain. Unknown last tetanus. PMD: None provided. Past Medical History Reviewed: Historical Data, Nursing Documentation, Vital Signs Vital Signs: Last Vital Signs Temp 98.4 F 04/27/18 18:02 Pulse 96 H 04/27/18 18:02 Resp 17 04/27/18 18:02 BP 170/96 H 04/27/18 18:02 Pulse Ox 99 04/27/18 18:02 - Medical History PMH: Diabetes Denies: Chronic Kidney Disease - Surgical History Surgical History: No Surg Hx - Family History Family History: States: No Known Family Hx - Social History Alcohol: None Drugs: Denies - Home Medications Home Medications: Ambulatory Orders Medication Instructions Recorded Atorvastatin [Lipitor] 20 mg PO DAILY #30 tab 05/27/17 Ciprofloxacin HCl [Cipro] 500 mg PO BID 10 Days tablet 05/27/17 GlipiZIDE [Glucotrol] 10 mg PO ACD #30 tab 05/27/17 GlipiZIDE [Glucotrol] 20 mg PO ACB #30 tab 05/27/17 Lisinopril [Zestril] 5 mg PO DAILY #30 tab 05/27/17 MetFORMIN [glucoPHAGE] 1,000 mg PO QAM #30 tab 05/27/17 Sulfamethoxazole/Trimethoprim 1 tab PO BID 10 Days tab 05/27/17 [Bactrim DS 800 mg-160 mg] metFORMIN [glucOPHAGE] 500 mg PO QPM #30 tab 05/27/17 - Allergies Allergies/Adverse Reactions: Allergies Allergy/AdvReac Type Severity Reaction Status Date / Time No Known Allergies Allergy Verified 05/21/17 10:04 Review of Systems ROS Statement: Except As Marked, All Systems Reviewed And Found Negative Cardiovascular: Negative for: Chest Pain Gastrointestinal: Negative for: Nausea, Vomiting, Abdominal Pain Musculoskeletal: Positive for: Neck Pain (mild) Skin: Positive for: Other (forehead wound) Neurological: Negative for: Numbness, Other (LOC) Physical Exam - Reviewed Nursing Documentation Reviewed: Yes Vital Signs Reviewed: Yes - Physical Exam Appears: Positive for: Well, Non-toxic, No Acute Distress Head Exam: Positive for: NORMOCEPHALIC. Negative for: ATRAUMATIC (right side of forehead above right upper eyebrow: superficial abrasion. (-) laceration, (-) active bleeding) Skin: Positive for: Normal Color Eye Exam: Positive for: Normal appearance, EOMI. Negative for: Other (hyphema) ENT: Positive for: TM Is/Are ((-) hemotympanum) Neck: Positive for: Normal Cardiovascular/Chest: Positive for: Regular Rate, Rhythm, Chest Non Tender Respiratory: Positive for: Normal Breath Sounds Gastrointestinal/Abdominal: Positive for: Normal Exam, Soft. Negative for: Tenderness Extremity: Positive for: Normal ROM. Negative for: Tenderness, Swelling Neurologic/Psych: Positive for: Alert, Oriented (3x), Gait (steady and unassisted) - ECG O2 Sat by Pulse Oximetry: 99 (RA) Pulse Ox Interpretation: Normal - Radiology X-Ray: Interpreted by Me (C-spine x-ray) X-Ray Interpretation: No Acute Disease Medical Decision Making Medical Decision Makin:13 Initial impression: 53 year old female with a head injury Initial plan: * CT head w/o contrast * CT maxillofacial w/o contrast * XRay cervical spine AP & LAT * glucose * tetanus 0.5 mL IM once * tylenol 325 mg tab, 975 mg PO * reevaluation Scribe Attestation: Documented byDulce Maria Dunn, acting as a scribe for Venancio Moreno. Provider Scribe Attestation: All medical record entries made by the Scribe were at my direction and personally dictated by me. I have reviewed the chart and agree that the record accurately reflects my personal performance of the history, physical exam, medical decision making, and the department course for this patient. I have also personally directed, reviewed, and agree with the discharge instructions and disposition. Disposition - Clinical Impression Clinical Impression: Head injury, Facial contusion - Patient ED Disposition Is Patient to be Admitted: Transfer of Care (Signed out to Maribel MCCAIN pending CT results and re-evaluation) - Disposition Disposition Time: 20:03 Condition: STABLE Forms: [email or web address] ([place])
--- NOTE | 2018-04-27 20:15 | ED PDOC ---
- ECG O2 Sat by Pulse Oximetry: 99 (RA) Pulse Ox Interpretation: Normal Medical Decision Making Medical Decision Making: Cases endorsed to Maribel MCCAIN at 2000 due to shift change. Pertinent details reviewed. Cervical spine reviewed. Patient pending CT results and further disposition. Accucheck 172. 2120 Repeat BP:121/66 Repeat HR: [address] reviewed, radiology report follows: IMPRESSION: Large right periorbital and forehead hematoma. No acute intracranial abnormality. S[facility]nn [facility] Maxillofacial CT reviewed, radiology report follows: IMPRESSION: 1. Large right periorbital and forehead hematoma. 2. Bilateral ethmoid and right maxillary sinusitis. 3: No fracture. Signed by [facility]ash Glynn [facility] ([facility]) Wound irrigated with saline. Bacitracin and band-aid applied. On re-evaluation, patient reports improvement of symptoms. On exam, patient remains AAOx3, in no acute distress. Lungs clear to auscultation, cardiac RRR, repeat neuro exam shows no focal findings. VSS, stable for discharge. Educated on wound care. Lab/Diagnostic results d/w the patient in great detail. Diagnosis of head injury, abrasion, facial contusion/hematoma s/p fall d/w the patient. Based on history, exam and diagnostic results, plan will be for outpatient follow up with PMD/clinic. Patient instructed to follow-up with pmd / referral provided / the clinic in 1- 2 days without fail. Advised to take medication as prescribed. Return to the emergency room at any time for any new or worsening symptoms. Patient states she fully agrees with and understands discharge instructions. States that she agrees with the plan and disposition. Verbalized and repeated discharge instructions and plan. I have given the patient opportunity to ask any additional questions. Disposition Counseled Patient/Family Regarding: Studies Performed, Diagnosis, Need For Followup, Rx Given - Clinical Impression Clinical Impression: Head injury, Facial contusion, Abrasion - POA Present On Arrival: Falls Or Trauma - Disposition Referrals: [facility] [Outside] Disposition: Routine/Home Disposition Time: 21:30 Condition: STABLE Additional Instructions: La atencin mdica de emergencia que recibi hoy se dirigi hacia los sntomas agudos de presentacin. Si le recetaron algn medicamento, llnelo y adminstrelo segn las indicaciones. Los sntomas pueden tardar varios rubio en resolverse. Regrese al Departamento de Emergencias en cualquier momento si los sntomas empeoran, no mejoran o si surgen otros problemas. Comunquese con moran mdico dentro de 2 rubio para william nueva evaluacin y austen un seguimiento o llame a joy de los mdicos / clnicas a los que townsend sido referido y que figuran en el formulario de Informacin de visita al paciente que se incluye en moran paquete de mellissa. Lleve todos los documentos que le entregaron al momento del mellissa junto con cualquier medicamento a moran visita de seguimiento. Nuestro tratamiento no puede reemplazar la atencin mdica continua por parte de un proveedor de atencin primaria (PCP) fuera del departamento de emergencias. Prescriptions: RX: Bacitracin Ointment [Bacitracin] 1 applic TOP BID #1 tube RX: Naproxen 500 mg PO BID PRN #20 tab PRN Reason: Pain, Moderate (4-7) Instructions: Concussion in Adults, Black Eye, Skin Abrasions, Wound Care, Contusion (DC), Minor Head Injury Forms: [employer] (Chinese) Print Language: MONGOLIAN
[2018-04-27 21:38] VITALS: BP 121/66; PULSE 90
--- NOTE | 2018-04-28 09:11 | RAD ---
Date of service: 04/27/2018 PROCEDURE: Cervical Spine Radiographs. HISTORY: Pain. COMPARISON: None available. FINDINGS: BONES: Alignment maintained. No fracture. Dens Intact. DISC SPACES: Normal. SOFT TISSUES: Normal. No prevertebral soft tissue swelling. OTHER FINDINGS: None. IMPRESSION: Unremarkable cervical spine radiographs.
--- NOTE | 2018-04-28 14:07 | CT ---
Date of service: 04/27/2018 PROCEDURE: CT HEAD WITHOUT CONTRAST. HISTORY: trauma COMPARISON: None available. TECHNIQUE: Axial computed tomography images were obtained through the head/brain without intravenous contrast. Radiation dose: Total exam DLP = 758.34 mGy-cm. This CT exam was performed using one or more of the following dose reduction techniques: Automated exposure control, adjustment of the mA and/or kV according to patient size, and/or use of iterative reconstruction technique. FINDINGS: HEMORRHAGE: No intracranial hemorrhage. BRAIN: Normal simons-white matter differentiation and density are appreciated throughout the cerebrum and cerebellum with the brainstem appearing unremarkable as well. There is no mass effect. There is no suspicious extra-axial fluid collection and the midline brain anatomy appears diffusely unremarkable. VENTRICLES: Unremarkable. No hydrocephalus. CALVARIUM: No destructive bony lesion or displaced fracture identified including through the skullbase. Prominent right supraorbital/frontal scalp hematoma and minimal right parietal vertex scalp hematoma. PARANASAL SINUSES: Unremarkable as visualized. No significant inflammatory changes. MASTOID AIR CELLS: Unremarkable as visualized. No inflammatory changes. OTHER FINDINGS: None. IMPRESSION: No acute intracranial findings. Essentially unremarkable appearing brain parenchyma throughout. Prominent right supraorbital/frontal scalp hematoma and minimal right parietal vertex scalp hematoma. No fracture identified. Concordant preliminary report from [facility], 04/27/2018.
--- NOTE | 2018-04-28 14:10 | CT ---
Date of service: 04/27/2018 PROCEDURE: CT MAXILLOFACIAL BONES WITHOUT CONTRAST HISTORY: trauma COMPARISON: None available. TECHNIQUE: Contiguous axial CT images of the maxillofacial bones were obtained. Coronal and sagittal reformats were generated. Radiation dose: Total exam DLP = 853.03 mGy-cm. This CT exam was performed using one or more of the following dose reduction techniques: Automated exposure control, adjustment of the mA and/or kV according to patient size, and/or use of iterative reconstruction technique. FINDINGS: NASAL BONES: No fracture or destructive bony lesion appreciated. ORBITS: Prominent right supraorbital and lateral orbital soft tissue edema and hematoma without underlying fracture identified. Edema is preseptal with no postseptal findings throughout the right orbit. Left orbit appears unremarkable. PARANASAL SINUSES/ MASTOIDS: Mucosal inflammatory changes are identified at the alveolar recess right maxillary sinus with remaining perineal sinuses appearing clear. MAXILLA: No fracture or destructive bony lesion appreciated. MANDIBLE/ TEMPOROMANDIBULAR JOINTS: No acute fracture or destructive bony lesion identified. SKULL BASE: No acute fracture or destructive bony lesion identified. TEMPORAL BONES: Middle ear cavities and mastoids grossly unremarkable. Left external auditory canal contains low-density soft tissues suggestive of cerumen. Clinically correlate. OTHER FINDINGS: Moderate inferior right frontal scalp edema/hematoma with mild right parietal vertex hematoma noted. IMPRESSION: 1. Extensive right periorbital edema/hematoma without postseptal involvement at the right orbit. The findings extend into the inferior right frontal scalp soft tissues as well. No fracture related. 2. Mild right parietal scalp hematoma identified. 3. Incidental left external auditory canal low-density soft tissue likely reflecting cerumen though clinical correlation is advised via direct inspection. Preliminary report provided by [facility], 04/27/2018.
== END 2018-04-27 21:38 | disposition home or self-care (01) ==
LOC: H.ER 17:51
DX: S00.03XA Contusion of scalp, initial encounter (principal); S09.90XA Unspecified injury of head, initial encounter; W10.9XXA Fall (on) (from) unspecified stairs and steps, initial encounter; Y92.89 Other specified places as the place of occurrence of the external cause; E11.9 Type 2 diabetes mellitus without complications; J32.0 Chronic maxillary sinusitis; Z79.84 Long term (current) use of oral hypoglycemic drugs